=== PATIENT | female | born 1960 | race Caucasian/White ===

== ENCOUNTER 2023-09-24 10:32 | Inpatient (IN) ==
--- NOTE | 2023-09-24 10:54 | Emergency Department Note ---
Impression & Plan Confusion, Uses feeding tube, Dehydration, Abdominal fluid collection ED Provider Note NAME: DIOGO RITTER AGE: 63 SEX: F : 1960 ARRIVES VIA: Ambulance INFORMANT: Patient ED PROVIDER(S): Gama Morton MD CHIEF COMPLAINT: Confusion, abdominal pain PLAN: Disposition: Admit MEDICAL DECISION MAKING: The patient is a pleasant 63-year-old woman with a past medical history of gastrojejunal tube secondary to recurring bowel obstructions per her report which was placed years ago in [facility] at the [facility] who presents to emergency department via EMS for evaluation of confusion since last night into this morning with associated feverishness and abdominal pain. Patient reports that she had diarrhea last night and has had nausea and what she describes as "vomiting" where she reports she feels nauseated and has to vent her GJ tube. The patient reports she is visiting family in the area over the past several days from her home in [place]. Patient is prescribed Soma and gabapentin and reports she does not take more than is prescribed and in fact has not been taking her Soma recently. She denies any cough, congestion, chest pain or shortness of breath. On evaluation the patient is no acute distress, afebrile with stable vital signs. She appears clinically dry with dry cracked mucous membranes. She has no focal neurologic deficits and is moving all extremities equally. The patient has some fullness in the inferior lateral periphery of her GJ tube but otherwise no surrounding erythema or warmth. She has generalized abdominal discomfort without discrete tenderness. EKG without overt acute ischemia. CXR negative for acute cardiopulmonary process per my personal preliminary review/interpretation. WBC, H/H and platelets within normal limits. Chemistry without metabolic acidosis per electrolytes LFTs unremarkable. BUNs/creatinine is 23, consistent with patient's clinical dry appearance. Lactic acid 0.6, within normal limits. LFTs with AST, ALT and alk phos 94, 121 and 159, respectively, nonspecific without prior for comparison. High-sensitivity troponin 2.9, within normal limits. Lipase is within normal limits. Procalcitonin is not elevated. TSH is significantly low however free T4 within normal limits. UA without convincing evidence of infection. Urine drug screen was negative. Respiratory BioFire was negative. CT of the ab pelvis was performed and did not demonstrate evidence of bowel obstruction. Note is made of fluid collection in the subcutaneous tissues on the periphery of the patient's GJ tube for which sterility cannot be confirmed. I did review the patient's findings with her at the bedside and she reports that she has started to have new pain in the area surrounding her GJ tube which correlates to the fluid collection described on CT. Given her feverishness, abdominal pain and change in mental status she did agree with plan for admission for further management. Unclear if the patient's subcutaneous fluid collection is contributing to the patient's symptoms or may be chronic as no prior imaging is available for comparison. Empiric antibiotic treatment initiated with Zosyn and daptomycin at this time. Of note, the patient does have substantial stool burden within the rectum and may be contributing to decreased motility contribute to the patient's symptoms. Milk and molasses enema ordered to assist with disimpaction. Case was discussed with Michaelle DILLON with Dr. Lamas [facility] hospitalist, who will evaluate the patient for admission. Tickborne illness panel ordered and pending. Case was reviewed with Dr. Duarte, general surgery on-call on behalf of admitting team. No indication for immediate surgical evaluation or intervention and they will be available for inpatient team consultation. Admitting team was updated. Further management per admitting team. Triage Nursing notes reviewed and agree them. Prior/external medical records reviewed Vital Signs: reviewed Differential diagnosis: Gastroenteritis, food borne illness, infections, appendicitis, diverticulitis, inflammatory bowel disease, obstruction, GI bleed, biliary pathology, volvulus, as well as other pathologies. ER treatment provided: See below. Diagnostics interpreted by me: ECG: Normal sinus rhythm, 71 bpm, no ectopy, no overt ST elevation or depression, QTc 443, QRS 84. Cardiac Monitoring: An order for continuous cardiac monitoring was placed and demonstrated Normal sinus rhythm, 71 bpm, no ectopy. Laboratory studies: See below Imaging studies: See below Consultation(s): Michaelle DILLON with Dr. Lamas [facility] Hospitalist. Dr. Duarte, General surgery HPI: The patient is a pleasant 63-year-old woman with a past medical history of gastrojejunal tube secondary to recurring bowel obstructions per her report which was placed years ago in [facility] at the [facility] who presents to emergency department via EMS for evaluation of confusion since last night into this morning with associated feverishness and abdominal pain. Patient reports that she had diarrhea last night and has had nausea and what she describes as "vomiting" where she reports she feels nauseated and has to vent her GJ tube. The patient reports she is visiting family in the area over the past several days from her home in [place]. Patient is prescribed Soma and gabapentin and reports she does not take more than is prescribed and in fact has not been taking her Soma recently. She denies any cough, congestion, chest pain or shortness of breath. ROS: See above HPI for pertinent positives & negatives. A total of 10 systems reviewed and were otherwise negative. VITALS:See Below PHYSICAL EXAMINATION: GENERAL: Awake, alert, fatigued-appearing, in no distress, BMI 30.1. HENT: Normocephalic, atraumatic. Oropharynx with dry mucous membranes and otherwise unremarkable. EYES: Normal conjunctiva. Sclera non-icteric. EOMI. No nystamgus. PEARRL. NECK: Supple. No nuchal rigidity. FROM. No JVD. RESPIRATORY: Clear to auscultation. CARDIAC: Regular rate, normal rhythm. Extremities warm and well perfused. Pulses equal. ABDOMEN: Soft, non-distended. Some fullness in the inferior lateral periphery of her GJ tube but otherwise no surrounding erythema or warmth. No guarding or rebound. She has generalized abdominal discomfort without discrete tenderness. MUSCULOSKELETAL: Chest examination reveals no tenderness. The back is symmetrical on inspection without obvious abnormality. There is no CVA tenderness to palpation. No joint edema. LOWER EXTREMITIES: Calves are equal size bilaterally and non-tender. No edema. No discoloration. NEURO: Normal sensorium. No sensory or motor deficits noted. SKIN: No rash or jaundice noted. Gama Morton MD Past Med/Surg History Medical History Hypothyroidism History of Clostridioides difficile infection History of small bowel obstruction Uses feeding tube History of CVA (cerebrovascular accident) Diverticular disease of both small and large intestine Surgical History History of bowel resection History of total colectomy Social History Smoking Status: Former smoker Hx Alcohol Use: No Hx Substance Use: No Preferred Language: Portuguese Communication Ability: Effective Beliefs That Will Affect Care: None Current Living Situation: Spouse and Family Other Information That Helps Us Care for You: No Feels Safe at Home: Yes Assistive Devices: Glasses Allergies Allergies Allergy/AdvReac Type Severity Reaction Status Date / Time Sulfa (Sulfonamide Allergy Unknown Unknown Unverified 09/24/23 14:50 Antibiotics) ciprofloxacin [From Cipro] Allergy Anaphylaxis Verified 09/24/23 12:50 Home Meds Home Medications Medication Instructions Recorded Confirmed carisoprodol 350 mg tablet (Soma) 350 mg PO BID 09/24/23 09/24/23 cholecalciferol (vitamin D3) 10 0 mcg PO DAILY 09/24/23 09/24/23 mcg (400 unit) capsule (Vitamin D3) cyanocobalamin (vitamin B-12) 1,000 mcg IM UD 09/24/23 09/24/23 1,000 mcg/mL injection solution duloxetine 60 mg capsule,delayed 60 mg PO DAILY 09/24/23 09/24/23 release (Cymbalta) erenumab-aooe 140 mg/mL 140 mg subcut UD 09/24/23 09/24/23 subcutaneous auto-injector (Aimovig Autoinjector) ezetimibe 10 mg tablet (Zetia) 10 mg PO DAILY 09/24/23 09/24/23 famotidine 40 mg tablet 40 mg PO DAILY 09/24/23 09/24/23 folic acid 1 mg tablet 1 mg PO DAILY 09/24/23 09/24/23 gabapentin 600 mg tablet 600 mg PO BID 09/24/23 09/24/23 levothyroxine 100 mcg tablet 100 mcg PO DAILY 09/24/23 09/24/23 lidocaine 5 % topical patch 1 patch topical DAILY 09/24/23 09/24/23 meclizine 25 mg tablet 25 mg PO BID PRN Vertigo 09/24/23 09/24/23 methenamine hippurate 1 gram tablet 1 g PO BID 09/24/23 09/24/23 omega 1-dmq-ege-fish oil 1,000 mg 0 cap PO DAILY 09/24/23 09/24/23 (120 mg-180 mg) capsule (Fish Oil) promethazine 12.5 mg tablet 12.5 mg PO BID PRN nausea or 09/24/23 09/24/23 vomiting rosuvastatin 40 mg tablet 40 mg PO DAILY 09/24/23 09/24/23 spironolactone 50 mg tablet 50 mg PO DAILY 09/24/23 09/24/23 ubrogepant 50 mg tablet (Ubrelvy) 50 mg PO DAILY PRN Migraine 09/24/23 09/24/23 Headache zolpidem 10 mg tablet (Ambien) 10 mg PO HS 09/24/23 09/24/23 Results & Data (ED) Vital Signs Vital Signs - 24 hr 09/24/23 10:19 09/24/23 10:19 09/24/23 10:55 Temperature Temperature Source Pulse Rate 74 Pulse Rate [Apical] 68 Pulse Rhythm Pulse Rhythm [Apical] Regular Pulse Strength [Apical] Normal Respiratory Rate 18 Respiratory Effort / Characteristics Non-Labored Respiratory Depth Normal Respiratory Pattern Regular Blood Pressure Blood Pressure [Right Arm] 112/67 Blood Pressure Mean Blood Pressure Mean [Right Arm] 82 Blood Pressure Position Blood Pressure Position [Right Arm] Pulse Oximetry 94 97 Oxygen Delivery Method Room Air Room Air Sepsis Recent Fever Within 48 Hours Sepsis New/Unexplained Change in Mental Status Sepsis Action Taken by Nursing 09/24/23 11:02 09/24/23 11:08 09/24/23 11:15 Temperature 36.7 C 36.6 C Temperature Source Oral Oral Pulse Rate 72 72 Pulse Rate [Apical] 77 Pulse Rhythm Regular Pulse Rhythm [Apical] Regular Pulse Strength [Apical] Normal Respiratory Rate 19 18 18 Respiratory Effort / Characteristics Non-Labored Spontaneous Non-Labored Spontaneous Respiratory Depth Normal Normal Respiratory Pattern Regular Blood Pressure 112/67 Blood Pressure [Right Arm] 112/67 Blood Pressure Mean 82 Blood Pressure Mean [Right Arm] 82 Blood Pressure Position Lying Blood Pressure Position [Right Arm] Pulse Oximetry 94 100 99 Oxygen Delivery Method Room Air Room Air Room Air Sepsis Recent Fever Within 48 Hours No Sepsis New/Unexplained Change in Mental Status No Sepsis Action Taken by Nursing No Action Required 09/24/23 12:00 09/24/23 12:19 09/24/23 12:45 Temperature Temperature Source Pulse Rate Pulse Rate [Apical] 75 73 74 Pulse Rhythm Pulse Rhythm [Apical] Regular Regular Regular Pulse Strength [Apical] Normal Normal Normal Respiratory Rate 16 14 17 Respiratory Effort / Characteristics Non-Labored Spontaneous Non-Labored Spontaneous Non-Labored Spontaneous Respiratory Depth Normal Normal Normal Respiratory Pattern Regular Regular Regular Blood Pressure Blood Pressure [Right Arm] 112/67 122/57 L 117/64 Blood Pressure Mean Blood Pressure Mean [Right Arm] 82 78 81 Blood Pressure Position Blood Pressure Position [Right Arm] Lying Pulse Oximetry 98 97 96 Oxygen Delivery Method Room Air Room Air Room Air Sepsis Recent Fever Within 48 Hours Sepsis New/Unexplained Change in Mental Status Sepsis Action Taken by Nursing 09/24/23 13:00 09/24/23 13:15 09/24/23 14:00 Temperature Temperature Source Pulse Rate Pulse Rate [Apical] 70 71 72 Pulse Rhythm Pulse Rhythm [Apical] Regular Regular Regular Pulse Strength [Apical] Normal Normal Normal Respiratory Rate 16 16 18 Respiratory Effort / Characteristics Non-Labored Spontaneous Non-Labored Spontaneous Non-Labored Spontaneous Respiratory Depth Normal Normal Normal Respiratory Pattern Regular Regular Regular Blood Pressure Blood Pressure [Right Arm] 117/68 132/57 L 115/75 Blood Pressure Mean Blood Pressure Mean [Right Arm] 84 82 88 Blood Pressure Position Blood Pressure Position [Right Arm] Pulse Oximetry 96 96 100 Oxygen Delivery Method Room Air Room Air Room Air Sepsis Recent Fever Within 48 Hours Sepsis New/Unexplained Change in Mental Status Sepsis Action Taken by Nursing 09/24/23 15:16 Temperature Temperature Source Pulse Rate 60 Pulse Rate [Apical] Pulse Rhythm Pulse Rhythm [Apical] Pulse Strength [Apical] Respiratory Rate Respiratory Effort / Characteristics Respiratory Depth Respiratory Pattern Blood Pressure Blood Pressure [Right Arm] Blood Pressure Mean Blood Pressure Mean [Right Arm] Blood Pressure Position Blood Pressure Position [Right Arm] Pulse Oximetry Oxygen Delivery Method Sepsis Recent Fever Within 48 Hours Sepsis New/Unexplained Change in Mental Status Sepsis Action Taken by Nursing Laboratory Data Attestation: I reviewed the patient's lab results. 09/24/23 11:02 09/24/23 11:02 Lab Results 09/24/23 09/24/23 09/24/23 Range/Units 11:02 11:24 14:46 WBC 6.50 (4.8-10.8) K/ul RBC 4.21 (4.20-5.40) M/uL Hgb 13.1 (12.0-16.0) g/dl Hct 39.0 (37.0-47.0) % MCV 92.6 (80.0-100.0) fL MCH 31.1 (25.0-34.0) pg MCHC 33.6 (32.0-36.0) g/dL RDW Std Deviation 47.0 H (36.4-46.3) fL RDW Coeff of Presley 13.9 (11.5-14.5) % Plt Count 217 (130-400) K/uL MPV 9.6 (9.4-12.4) fL Immature Gran % (Auto) 0.6 % Neut % (Auto) 72.1 % Lymph % (Auto) 14.2 % Weld % (Auto) 9.8 % Eos % (Auto) 2.8 % Baso % (Auto) 0.5 % Neut # (Auto) 4.69 (1.40-6.50) K/uL Lymph # (Auto) 0.92 L (1.20-3.40) K/uL Weld # (Auto) 0.64 H (0.11-0.59) K/uL Eos # (Auto) 0.18 (0.00-0.50) K/uL Baso # (Auto) 0.03 (0.00-0.20) K/uL Immature Gran # (Auto) 0.04 (0.01-0.20) K/uL PT 10.4 (9.0-12.0) Seconds INR 0.9 (0.9-1.1) Sodium 139 (136-145) mmol/L Potassium 4.2 (3.5-5.1) mmol/L Chloride 106 (98-107) mmol/L Carbon Dioxide 27 (21-32) mmol/L Anion Gap 6 (3-11) BUN 17 (6-23) mg/dl Creatinine 0.74 (0.6-1.2) mg/dl Est Cr Clr Drug Dosing Not Reportable Est GFR ( Amer) 100.6 ml/min Est GFR (Non-Af Amer) 86.8 ml/min BUN/Creatinine Ratio 23.0 H (10-20) Glucose 89 (70-99(Fasting)) mg/dl Lactate 0.6 (0.4-2.0) mmol/L Calcium 9.3 (8.6-10.3) mg/dl Phosphorus 3.5 (2.5-4.9) mg/dl Magnesium 2.0 (1.7-2.4) mg/dl Total Bilirubin 0.3 (0.2-1.0) mg/dl Direct Bilirubin 0.1 (0-0.2) mg/dl AST 94 H (13-39) U/L ALT 121 H (7-52) U/L Alkaline Phosphatase 159 H (34-104) U/L Troponin I High Sens 2.9 (0-14) pg/ml Total Protein 6.1 (6.0-8.3) gm/dl Albumin 3.7 (3.4-5.0) gm/dl Lipase 27 (11-82) U/L Procalcitonin 0.05 (0-0.5) ng/ml TSH < 0.010 L (0.300-4.500) uIu/ml Free T4 1.33 (0.61-1.60) ng/dl Urine Color Yellow Urine Appearance Clear (Clear) Urine pH 6.0 (4.5-7.5) Ur Specific Roby 1.024 (1.000-1.030) Urine Protein Negative (Negative) Urine Glucose (UA) Negative (Negative) Urine Ketones Negative (Negative) Urine Blood Negative (Negative) Urine Nitrite Negative (Negative) Urine Bilirubin Negative (Negative) Urine Urobilinogen Negative (Negative) Ur Leukocyte Esterase Trace H (Negative) Urine WBC (Auto) 0-5 (0-5) /hpf Urine RBC (Auto) 3-5 H (0-2) /hpf U Hyaline Cast (Auto) 0-2 (0-2) /lpf U Epithel Cells (Auto) 0-2 (0-2) /hpf Urine Bacteria (Auto) None Seen (None Seen) Urine Opiates Screen Neg (Neg) Ur Methadone, Qual Neg (Neg) Urine Barbiturates Neg (Neg) Ur Phencyclidine (PCP) Neg (Neg) U Amphetamin/Meth Scrn Neg (Neg) MDMA (Ecstasy) Screen Neg (Neg) U Benzodiazepines Scrn Neg (Neg) Ur Cocaine Metabolite Neg (Neg) U Marijuana (THC) Screen Neg (Neg) Adenovirus (PCR) Not Detected (NotDetected) Anaplasma Smear See Comment Babesia Smear See Comment B. pertussis DNA (PCR) Not Detected (NotDetected) B.parapertussis DNA PCR Not Detected (NotDetected) Lyme Disease Screen Positive H (Negative) Lyme Disease IgG Ab Negative (Negative) Lyme Disease IgM Ab Negative (Negative) C. pneumoniae DNA (PCR) Not Detected (NotDetected) Coronavirus OC43 (PCR) Not Detected (NotDetected) Coronavirus HKU1 (PCR) Not Detected (NotDetected) Coronavirus 229E (PCR) Not Detected (NotDetected) SARS-CoV-2 (PCR) Not Detected (NotDetected) Coronavirus NL63 (PCR) Not Detected (NotDetected) Human Metapneumovir PCR Not Detected (NotDetected) Influenza Type A (PCR) Not Detected (NotDetected) Influenza Type B (PCR) Not Detected (NotDetected) M. pneumoniae (PCR) Not Detected (NotDetected) Parainfluenza 1 (PCR) Not Detected (NotDetected) Parainfluenza 2 (PCR) Not Detected (NotDetected) Parainfluenza 3 (PCR) Not Detected (NotDetected) Parainfluenza 4 (PCR) Not Detected (NotDetected) RSV (PCR) Not Detected (NotDetected) Entero/Rhino (PCR) Not Detected (NotDetected) Administered Medications Carisoprodol (Carisoprodol 350 Mg Tablet) 350 mg PO BID [facility] Stop: 10/24/23 20:59 Last Admin: 09/24/23 22:27 Dose: 350 mg Documented By: ALPESH Gabapentin (Gabapentin 600 Mg Tab) 600 mg PO BID [facility] Stop: 10/24/23 20:59 Last Admin: 09/24/23 21:34 Dose: 600 mg Documented By: ALPESH Heparin Sodium (Porcine) (Heparin Sod 5,000 Unit/0.5 Ml Vial) 5,000 units SQ Q8 [facility] Stop: 10/24/23 21:59 Last Admin: 09/24/23 21:34 Dose: 5,000 units Documented By: ALPESH Daptomycin 375 mg/ Syringe 7.5 mls @ 3.75 mls/min IV Q24H [facility]; Protocol Stop: 10/08/23 16:59 Last Admin: 09/24/23 17:45 Dose: 3.75 mls/min Documented By: JAYDEN Sodium Chloride (Nss) 1,000 mls @ 80 mls/hr IV .[id number] [facility] Stop: 10/24/23 20:41 Last Admin: 09/24/23 21:21 Dose: 80 mls/hr Documented By: ALPESH Piperacillin Sod/Tazobactam (Sod 4.5 gm/ Dextrose) 100 mls @ 25 mls/hr IV Q8H [facility]; Protocol Stop: 10/01/23 21:59 Last Admin: 09/24/23 21:36 Dose: 25 mls/hr Documented By: ALPESH Methenamine Hippurate (Methenamine Hippurate 1 Gm Tab) 1 gm PO BID [facility] Stop: 10/24/23 20:59 Last Admin: 09/24/23 21:34 Dose: 1 gm Documented By: ALPESH Oxycodone HCl (Oxycodone Hcl Ir 5 Mg Tab (Immediate Release)) 5 mg PO Q6H PRN PRN Reason: Mod-Sev Pain (Scale 4-10) Stop: 10/08/23 19:18 Last Admin: 09/24/23 21:21 Dose: 5 mg Documented By: ALPESH Sterile Water (Tube Feeding Water Flush) 60 ml GT Q6H [facility] Stop: 10/24/23 20:41 Last Admin: 09/24/23 21:22 Dose: 60 ml Documented By: ALPESH Discontinued Medications Sodium Chloride (Nss) 1,000 mls @ 999 mls/hr IV .Q1H1M ONE Stop: 09/24/23 11:51 Last Infusion: 09/24/23 12:14 Dose: Infused Documented By: Admin: 09/24/23 11:36 Dose: 999 mls/hr Documented By: FIDEL Famotidine (Pepcid 20mg Iv Push) 20 mg in 5 mls @ 2.5 mls/min IV NOW STA Stop: 09/24/23 10:53 Last Admin: 09/24/23 11:31 Dose: 2.5 mls/min Documented By: FIDEL Acetaminophen (Ofirmev) 1,000 mg in 100 mls @ 400 mls/hr IV NOW STA Stop: 09/24/23 11:06 Last Infusion: 09/24/23 12:14 Dose: Infused Documented By: Admin: 09/24/23 11:30 Dose: 400 mls/hr Documented By: FIDEL Piperacillin Sod/Tazobactam Sod (Zosyn) 4.5 gm in 100 mls @ 200 mls/hr IV NOW ONE Stop: 09/24/23 17:23 Last Infusion: 09/24/23 18:00 Dose: Infused Documented By: Admin: 09/24/23 17:21 Dose: 200 mls/hr Documented By: JAYDEN Daptomycin 250 mg/ Syringe 5 mls @ 2.5 mls/min IV Q24H [facility]; Protocol Stop: 10/01/23 20:41 Last Admin: 09/24/23 20:59 Dose: Not Given Documented By: ALPESH Ioversol (Optiray 320 100ml) 93 ml IV ONCE ONE Stop: 09/24/23 14:00 Last Admin: 09/24/23 13:59 Dose: 93 ml Documented By: PARRISH Ketorolac Tromethamine (Ketorolac Tromethamine 15 Mg/Ml Vial) 15 mg IV NOW STA Stop: 09/24/23 16:58 Last Admin: 09/24/23 17:08 Dose: 15 mg Documented By: JAYDEN Ondansetron HCl (Ondansetron Inj 2 Mg/Ml 2 Ml Vial) 4 mg IV NOW STA Stop: 09/24/23 10:53 Last Admin: 09/24/23 11:31 Dose: 4 mg Documented By: FIDEL Imaging Data Radiologist's Impression: Abdomen/Pelvis CT 09/24/23 12:[address] WITH IV CONTRAST CT DOSE: 2101.65 mGy.cm HISTORY: Acute transabdominal pain abd pain, Gtube, nausea, diarrhea TECHNIQUE: Multiaxial CT images of the abdomen and pelvis were performed following the IV administration of 93 cc of Optiray, A dose lowering technique was utilized adhering to the principles of ALARA. COMPARISON STUDY: None. FINDINGS: Right IJ catheter distal tip terminates in the right atrium. Mild bibasilar linear atelectasis versus scarring. No free air. Unremarkable spleen, pancreas and adrenal glands. Cholecystectomy with likely postsurgical biliary ductal dilation. Patency of the hepatic and portal veins. Cortical thinning of the kidneys without hydronephrosis. Punctate nonobstructing calculi in the inferior pole left kidney. There is a hyperdense 10 mm indeterminate lesion of the posterior interpolar right kidney image 195. Mild nonspecific urinary bladder wall thickening. Hysterectomy. Atherosclerosis of the aorta and branch vessels without aneurysm. No lymphadenopathy. A gastrostomy tube is noted coiled within the stomach with distal tip within the gastroduodenal junction. Mild gastric wall thickening with partial distention. There is mild inflammatory stranding within the abdominal wall adjacent to the gastrostomy tube. There is a 6 x 10 cm circumscribed crescentic fluid collection within the deep subcutaneous tissues along the anterior abdominal wall inferomedial to the gastrostomy tube. Postoperative changes of the large and small bowel with areas of anastomotic suture. No bowel obstruction or bowel wall thickening. No ascites or mesenteric inflammation. Diastases recti. No acute fracture or destructive bone lesion. Cannulated bulges noted within the SI joints. IMPRESSION: 1. No bowel obstruction or bowel wall thickening. 2. A gastrostomy tube is in place. There is wall thickening within the left anterior abdominal wall surrounding the gastrostomy tube with an adjacent indeterminate 6 cm anterior abdominal wall fluid collection. Stability cannot be determined by imaging alone. 3. Indeterminate 10 mm right renal lesion could be correlated with a nonemergent follow-up ultrasound. 4. Additional findings as above. ACT 112: Negative or not required by law. The above report was generated using voice recognition software. It may contain grammatical, syntax or spelling errors. Electronically signed by: Marcos Kerr M.D. 09/24/2023 2:[address] 09/24/23 12:[address] DOSE: HISTORY: Altered mental status. TECHNIQUE: Multiaxial CT images of the head were performed without the use of intravenous contrast. Automated exposure control was utilized for this study. A dose lowering technique was utilized adhering to the principles of ALARA. Comparison: None. Findings: The paranasal sinuses and mastoid air cells are clear. The calvarium and skull base are intact. The ventricles and sulci are within normal limits. There is no mass, hematoma, midline shift, or acute infarct. Impression: No acute intracranial abnormality. ACT 112: Negative or not required by law. Electronically signed by: Ketan Patel M.D. 09/24/2023 2:39 PM Discharge Plan Visit Data Chief Complaint: Confusion ED Provider: Gama Morton Discharge Problem: Confusion, Uses feeding tube, Dehydration, Abdominal fluid collection Patient Disposition: Admitted As Inpatient Discharge Instructions Interventions: ED Discharge Assessment Last Done: 09/24/23 20:24
[2023-09-24 11:22] LABS: Basophils # (auto) 0.03 K/uL (0.00-0.20); Basophils % (auto) 0.5 %; Eosinophils # (auto) 0.18 K/uL (0.00-0.50); Eosinophils % (auto) 2.8 %; Hemoglobin 13.1 g/dl (12.0-16.0); Immature Granulocytes # (auto) 0.04 K/uL (0.01-0.20); Immature Granulocytes % (auto) 0.6 %; Lymphocytes # (auto) 0.92 K/uL (1.20-3.40); Lymphocytes % (auto) 14.2 %; Mean Corpuscular Hemoglobin 31.1 pg (25.0-34.0); Mean Corpuscular Hgb Conc 33.6 g/dL (32.0-36.0); Mean Corpuscular Volume 92.6 fL (80.0-100.0); Mean Platelet Volume 9.6 fL (9.4-12.4); Monocytes # (auto) 0.64 K/uL (0.11-0.59); Monocytes % (auto) 9.8 %; Neutrophils # (auto) 4.69 K/uL (1.40-6.50); Neutrophils % (auto) 72.1 %; Platelet Count 217 K/uL (130-400); RDW Coefficient of Variation 13.9 % (11.5-14.5); Red Blood Count 4.21 M/uL (4.20-5.40)
--- NOTE | 2023-09-24 11:25 | XRay Report ---
XR chest 1V portable CLINICAL HISTORY: Sepsis TECHNIQUE: Single frontal radiograph of the chest was obtained. Comparison: None available at the time of this dictation. FINDINGS: A port catheter is seen. The cardiomediastinal silhouette is normal. Tenting of the left hemidiaphrag m is seen with associated left lower lung airspace opacity. Cannot exclude left pleural effusion. IMPRESSION: Tenting of the left hemidiaphragm likely represents a column component of atelectasis/scarring. Super imposed pneumonia cannot be excluded. ACT 112: Negative or not required by law. Electronically signed by: Nick Gomes M.D. 09/24/2023 11:24 AM
[2023-09-24] MEDS: ACETAMINOPHEN 1,000 MG/100 ML VIAL IV STA (11:30)
[2023-09-24] MEDS: FAMOTIDINE 20MG IV PUSH 20 MG/5 ML SYR IV STA (11:31)
[2023-09-24] MEDS: ONDANSETRON INJ 2 MG/ML 2 ML VIAL IV STA (11:31)
[2023-09-24] MEDS: SODIUM CHLORIDE 0.9% 1,000 ML IV ONE (11:36)
[2023-09-24 11:40] LABS: Alanine Aminotransferase 121 U/L (7-52); Albumin Level 3.7 gm/dl (3.4-5.0); Alkaline Phosphatase 159 U/L (34-104); Anion Gap 6 (3-11); Aspartate Aminotransferase 94 U/L (13-39); Bilirubin Direct 0.1 mg/dl (0-0.2); Bilirubin,Total 0.3 mg/dl (0.2-1.0); Blood Urea Nitrogen 17 mg/dl (6-23); Calcium 9.3 mg/dl (8.6-10.3); Carbon Dioxide 27 mmol/L (21-32); Chloride 106 mmol/L (98-107); Est GFR (African American) 100.6 ml/min; Est GFR (Non-African American) 86.8 ml/min; Glucose 89 mg/dl (70-99(Fasting)); Lipase 27 U/L (11-82); Phosphorus 3.5 mg/dl (2.5-4.9); Potassium 4.2 mmol/L (3.5-5.1); Sodium 139 mmol/L (136-145); Total Protein 6.1 gm/dl (6.0-8.3)
[2023-09-24 11:45] LABS: Troponin I High Sensitivity 2.9 pg/ml (0-14)
[2023-09-24 11:48] LABS: INR 0.9 (0.9-1.1); Prothrombin Time 10.4 Seconds (9.0-12.0)
[2023-09-24 11:54] LABS: Thyroid Stimulating Hormone < 0.010 uIu/ml (0.300-4.500)
[2023-09-24 12:25] LABS: Adenovirus PCR Not Detected (NotDetected); Bordetella parapertussis PCR Not Detected (NotDetected); Bordetella pertussis PCR Not Detected (NotDetected); Chlamydia pneumoniae PCR Not Detected (NotDetected); Coronavirus 229E PCR Not Detected (NotDetected); Coronavirus CoV-2 (COVID19)PCR Not Detected (NotDetected); Coronavirus HKU1 PCR Not Detected (NotDetected); Coronavirus NL63 PCR Not Detected (NotDetected); Coronavirus OC43PCR Not Detected (NotDetected); Human Metapneumovirus PCR Not Detected (NotDetected); Influenza A PCR Not Detected (NotDetected); Influenza B PCR Not Detected (NotDetected); Mycoplasma pneumoniae PCR Not Detected (NotDetected); Parainfluenza Virus 1 PCR Not Detected (NotDetected); Parainfluenza Virus 2 PCR Not Detected (NotDetected); Parainfluenza Virus 3 PCR Not Detected (NotDetected); Parainfluenza Virus 4 PCR Not Detected (NotDetected); Respiratory Syncytial VirusPCR Not Detected (NotDetected); Rhinovirus/Enterovirus PCR Not Detected (NotDetected)
[2023-09-24 12:28] LABS: T4 Free Thyroxine 1.33 ng/dl (0.61-1.60)
[2023-09-24] MEDS: OPTIRAY 320 100ml IV ONE (13:59)
--- NOTE | 2023-09-24 14:19 | CT Scan Report ---
ABDOMEN AND PELVIS CT WITH IV CONTRAST CT DOSE: 2101.65 mGy.cm HISTORY: Acute transabdominal pain abd pain, Gtube, nausea, diarrhea TECHNIQUE: Multiaxial CT images of the abdomen and pelvis were performed following the IV administrat ion of 93 cc of Optiray, A dose lowering technique was utilized adhering to the principles of ALARA. COMPARISON STUDY: None. FINDINGS: Right IJ catheter distal tip terminates in the right atrium. Mild bibasilar linear atelecta sis versus scarring. No free air. Unremarkable spleen, pancreas and adrenal glands. Cholecystectomy w ith likely postsurgical biliary ductal dilation. Patency of the hepatic and portal veins. Cortical thinning of the kidneys without hydronephrosis. Punctate nonobstructing calculi in the infer ior pole left kidney. There is a hyperdense 10 mm indeterminate lesion of the posterior interpolar ri ght kidney image 195. Mild nonspecific urinary bladder wall thickening. Hysterectomy. Atherosclerosis of the aorta and branch vessels without aneurysm. No lymphadenopathy. A gastrostomy tube is noted coiled within the stomach with distal tip within the gastroduodenal junct ion. Mild gastric wall thickening with partial distention. There is mild inflammatory stranding withi n the abdominal wall adjacent to the gastrostomy tube. There is a 6 x 10 cm circumscribed crescentic fluid collection within the deep subcutaneous tissues along the anterior abdominal wall inferomedial to the gastrostomy tube. Postoperative changes of the large and small bowel with areas of anastomotic suture. No bowel obstruction or bowel wall thickening. No ascites or mesenteric inflammation. Diasta ses recti. No acute fracture or destructive bone lesion. Cannulated bulges noted within the SI joints . IMPRESSION: 1. No bowel obstruction or bowel wall thickening. 2. A gastrostomy tube is in place. There is wall thickening within the left anterior abdominal wall s urrounding the gastrostomy tube with an adjacent indeterminate 6 cm anterior abdominal wall fluid col lection. Stability cannot be determined by imaging alone. 3. Indeterminate 10 mm right renal lesion could be correlated with a nonemergent follow-up ultrasound . 4. Additional findings as above. ACT 112: Negative or not required by law. The above report was generated using voice recognition software. It may contain grammatical, syntax o r spelling errors. Electronically signed by: Marcos Kerr M.D. 09/24/2023 2:17 PM
--- NOTE | 2023-09-24 14:40 | CT Scan Report ---
HEAD CT NONCONTRAST CT DOSE: HISTORY: Altered mental status. TECHNIQUE: Multiaxial CT images of the head were performed without the use of intravenous contrast. A utomated exposure control was utilized for this study. A dose lowering technique was utilized adheri ng to the principles of ALARA. Comparison: None. Findings: The paranasal sinuses and mastoid air cells are clear. The calvarium and skull base are int act. The ventricles and sulci are within normal limits. There is no mass, hematoma, midline shift, or acute infarct. Impression: No acute intracranial abnormality. ACT 112: Negative or not required by law. Electronically signed by: Ketan Patel M.D. 09/24/2023 2:39 PM
[2023-09-24 15:08] LABS: Appearance Urine Clear (Clear); Bacteria Urine Automated None Seen (None Seen); Bilirubin Urine Negative (Negative); Blood Urine Negative (Negative); Cast Urine Automated 0-2 /lpf (0-2); Color Urine Yellow; Epithelial Cell Urine Auto 0-2 /hpf (0-2); Glucose Urine UA Negative (Negative); Ketones Urine Negative (Negative); Leukocyte Esterase Urine Trace (Negative); Nitrite Urine Negative (Negative); Protein Urine Negative (Negative); Specific Gravity Urine 1.024 (1.000-1.030); Urobilinogen Urine Negative (Negative); WBC Urine Automated 0-5 /hpf (0-5)
[2023-09-24 15:27] LABS: Amphetamines+Metham, Urine Neg (Neg); Barbiturates, Urine Neg (Neg); Benzodiazepine, Urine Neg (Neg); Cocaine, Urine Neg (Neg); MDMA (Ecstacy), Urine Neg (Neg); Marijuana, Urine Neg (Neg); Methadone, Urine Neg (Neg); Opiate, Urine Neg (Neg); Phencyclidine, Urine Neg (Neg)
[2023-09-24] MEDS: KETOROLAC TROMETHAMINE 15 MG/ML VIAL IV STA (17:08)
[2023-09-24] MEDS: PIPERACILLIN/TAZOBACTAM 4.5 GM/100 ML BAG IV ONE (17:21)
[2023-09-24] MEDS: DAPTOmycin 375 MG in SYRINGE 0 ML IV SCH (17:45)
[2023-09-24 18:21] LABS: Lyme Screen Rflx Confirmation Positive (Negative)
--- NOTE | 2023-09-24 19:23 | History & Physical Report ---
Date of Service September 24, 2023 History of Present Illness Primary Care Provider: NO PCP Allergies Allergy/AdvReac Type Severity Reaction Status Date / Time Sulfa (Sulfonamide Allergy Unknown Unknown Unverified 09/24/23 14:50 Antibiotics) ciprofloxacin [From Cipro] Allergy Anaphylaxis Verified 09/24/23 12:50 Home Medications Medication Instructions Recorded Confirmed Type carisoprodol 350 mg tablet (Soma) 350 mg PO BID 09/24/23 09/24/23 History cholecalciferol (vitamin D3) 10 0 mcg PO DAILY 09/24/23 09/24/23 History mcg (400 unit) capsule (Vitamin D3) cyanocobalamin (vitamin B-12) 1,000 mcg IM UD 09/24/23 09/24/23 History 1,000 mcg/mL injection solution duloxetine 60 mg capsule,delayed 60 mg PO DAILY 09/24/23 09/24/23 History release (Cymbalta) erenumab-aooe 140 mg/mL 140 mg subcut UD 09/24/23 09/24/23 History subcutaneous auto-injector (Aimovig Autoinjector) ezetimibe 10 mg tablet (Zetia) 10 mg PO DAILY 09/24/23 09/24/23 History famotidine 40 mg tablet 40 mg PO DAILY 09/24/23 09/24/23 History folic acid 1 mg tablet 1 mg PO DAILY 09/24/23 09/24/23 History gabapentin 600 mg tablet 600 mg PO BID 09/24/23 09/24/23 History levothyroxine 100 mcg tablet 100 mcg PO DAILY 09/24/23 09/24/23 History lidocaine 5 % topical patch 1 patch topical DAILY 09/24/23 09/24/23 History meclizine 25 mg tablet 25 mg PO BID PRN Vertigo 09/24/23 09/24/23 History methenamine hippurate 1 gram tablet 1 g PO BID 09/24/23 09/24/23 History omega 8-gxc-vwf-fish oil 1,000 mg 0 cap PO DAILY 09/24/23 09/24/23 History (120 mg-180 mg) capsule (Fish Oil) promethazine 12.5 mg tablet 12.5 mg PO BID PRN nausea or 09/24/23 09/24/23 History vomiting rosuvastatin 40 mg tablet 40 mg PO DAILY 09/24/23 09/24/23 History spironolactone 50 mg tablet 50 mg PO DAILY 09/24/23 09/24/23 History ubrogepant 50 mg tablet (Ubrelvy) 50 mg PO DAILY PRN Migraine 09/24/23 09/24/23 History Headache zolpidem 10 mg tablet (Ambien) 10 mg PO HS 09/24/23 09/24/23 History Past Med/Surg History Social History Smoking Status: Never smoker Preferred Language: Austrian Feels Safe at Home: Yes Results & Data Results & Data Vital Signs (Past 12 Hours) Vital Signs Temp Pulse Pulse Resp BP BP Pulse Ox 09/24/23 19:16 68 09/24/23 15:16 60 09/24/23 14:00 72 18 115/75 100 09/24/23 13:15 71 16 132/57 L 96 09/24/23 13:00 70 16 117/68 96 09/24/23 12:45 74 17 117/64 96 09/24/23 12:19 73 14 122/57 L 97 09/24/23 12:00 75 16 112/67 98 09/24/23 11:15 36.6 C 77 18 112/67 99 09/24/23 11:08 72 18 100 09/24/23 11:02 36.7 C 72 19 112/67 94 09/24/23 10:55 74 09/24/23 10:19 97 09/24/23 10:19 68 18 112/67 94 O2 Del Method 09/24/23 19:16 09/24/23 15:16 09/24/23 14:00 Room Air 09/24/23 13:15 Room Air 09/24/23 13:00 Room Air 09/24/23 12:45 Room Air 09/24/23 12:19 Room Air 09/24/23 12:00 Room Air 09/24/23 11:15 Room Air 09/24/23 11:08 Room Air 09/24/23 11:02 Room Air 09/24/23 10:55 09/24/23 10:19 Room Air 09/24/23 10:19 Room Air Supervising Physician Co-Signing Physician Notes Patient was seen and examined independently at bedside. Chart reviewed. Case discussed with Michaelle DILLON and agree with the documentation above. In summary, this is a 63 year old female with complicated history with multiple abdominal surgeries who presented to the ED with multiple constitutional symptoms. She is from [place] and drove here on Saturday with a stop overnight at [employer]. They arrived here on Saturday but she has been feeling sick since then. States she was exhausted with no energy. Had chills, sweating, decreased alertness and drained. She also has pain in her LLQ around the PEG tube site. States for the past week, she had yellow drainage with black stuff for few days and now mostly yellow. She has felt better since the ED treatment with iv fluids and antibiotics. During my encounter, she is AAO and conversing appropriately. She complains of pain around PEG tube site and asking for some pain meds. Discussed the labs and imaging findings. She is afebrile, hemodynamically stable. Labs including CBC, BMP unremarkable, UA negative but AST/ALT elevated, TSH <0.01, fT4 normal, lyme screen positive, RVP negative, UDS negative. CT head negative but CT A/P with noted 6x10 collection around PEG tube. Also states they went camping in [place] for 10 days in beginning of August but denies any tick bites. Will continue empiric antibiotics pending clx results, surgery evaluation. Decrease Synthroid to 75 given suspected subclinical hyperthyroidism and recommend OP follow up with repeat TFT in 6wks. On exam- General: Lying comfortably in bed, not in distress, on room air HEENT: EOMI, BRIAN, MMM Chest: Clear breath sounds bilaterally, no wheezes or crackles. Left sided port-A-cath noted- site clean. CVS: Regular rate and rhythm, normal heart sounds, no murmur Abdomen: Soft, PEG tube noted, mildly tender, not distended, normal bowel sounds Neuro: Awake, alert, oriented, conversing well, non focal Extremities: mild chronic edema Rest as per the note above.
--- NOTE | 2023-09-24 20:20 | History & Physical Report ---
Date of Service September 24, 2023 Assessment & Plan (1) Confusion: (2) Dehydration: (3) Abdominal fluid collection: (4) History of total colectomy: (5) Uses feeding tube: Plan: Admit to [facility] with telemetry Patient presenting for evaluation of confusion and generalized weakness. Patient with history of extensive diverticular disease and recurrent SBO's s/p multiple bowel resections ultimately leading to total colectomy. Had GJ tube placed February 2023. In the ED, afebrile, no leukocytosis. CT ABD/pelvis shows wall thickening within the left anterior abdominal wall surrounding the gastrostomy tube with an adjacent indeterminate 6 cm anterior abdominal wall fluid collection. Obtain culture of drainage S/p Zosyn and daptomycin in the ED, will continue with both for now pending culture results Follow blood cultures General surgery contacted by ED Consider IR evaluation tomorrow for possible fluid collection drainage. Patient did not receive her usual free water flushes yesterday. Suspect that dehydration was likely contributing to her confusion and generalized weakness. Patient seemed to have significant improvement after IVF administration in the ED. Continue maintenance IVF. Home tube feeding regimen-Peptamen 1.5 3 cartons to run over 7 hours and Prosource 30 mL bolus 4 times a day with 60 mL water flushes and 30 mL flush after Prosource. Dietitian consult for tube feed management. (6) Elevated LFTs: Plan: Patient reports a history of elevated LFTs, no records available to review at this time T. bili 0.3, AST 94, ALT 121, alk phos 159 Lyme screen positive however IgG and IgM negative. Anaplasma and Babesia smears negative for inclusion bodies, confirmatory testing pending. CT ABD/pelvis shows Cholecystectomy with likely postsurgical biliary ductal dilation. Will obtain RUQ US for follow-up. Trend LFTs, consider GI consult if not improving (7) Renal lesion: Plan: CT ABD/pelvis shows Indeterminate 10 mm right renal lesion could be correlated with a nonemergent follow-up ultrasound Renal ultrasound ordered (8) Hypothyroidism: Plan: TSH <0.010 with normal free T4 Continue home dose Synthroid, will need close outpatient follow-up DVT PROPHYLAXIS SQ heparin Patient seen in collaboration with Dr. Lamas. I spent a total of 75 minutes coordinating, documenting, and providing care for this patient excluding time spent in the performance of separately billed services. This included personally reviewing all current laboratories and imaging studies, medication reconciliation, outpatient chart review, and discussion with specialists. History of Present Illness Chief Complaint: Confusion, weakness Primary Care Provider: NO PCP 63-year-old female with PMH history of CVA, extensive history of diverticular disease s/p multiple bowel resections ultimately leading to total colectomy, GJ tube placement February 2023, history of recurrent small bowel obstructions, history of C. difficile infection, and other problems listed below who presents to the ED for evaluation of confusion and generalized weakness. History is obtained from the patient and who is the bedside. No outside records available for review. Patient and her are visiting family in the area. They primarily reside in [place]. Last evening, patient's states that patient was confused and hallucinating. Symptoms lasted for about 10 minutes and then resolved. Patient then went to bed. This morning, when patient woke up she was again confused and was generally weak, unable to sit up or get out of bed. Patient was then brought to the ED for further evaluation. Patient reports having some episodes of chills however did not take her temperature. Yesterday, patient was unable to get her usual amount of free water flushes through her feeding tube. Patient reports increased pain around her GJ tube insertion site as well with increased drainage. She has chronic diarrhea which is unchanged from baseline. No vomiting. She denies chest pain and shortness of breath. No lightheadedness, dizziness, diaphoresis, syncopal events. Denies urinary symptoms. In the ED, patient is afebrile, no leukocytosis noted. Mildly elevated LFTs, AST 94, ALT 121, alk phos 159. Lyme screen positive however IgG and IgM negative. CT ABD/pelvis shows There is wall thickening within the left anterior abdominal wall surrounding the gastrostomy tube with an adjacent indeterminate 6 cm anterior abdominal wall fluid collection. Patient was given IV Tylenol, IV daptomycin, IV famotidine, IV ketorolac, IV Zofran, IV Zosyn, IVF. Allergies Allergy/AdvReac Type Severity Reaction Status Date / Time Sulfa (Sulfonamide Allergy Unknown Unknown Unverified 09/24/23 14:50 Antibiotics) ciprofloxacin [From Cipro] Allergy Anaphylaxis Verified 09/24/23 12:50 Home Medications Medication Instructions Recorded Confirmed Type carisoprodol 350 mg tablet (Soma) 350 mg PO BID 09/24/23 09/24/23 History cholecalciferol (vitamin D3) 10 0 mcg PO DAILY 09/24/23 09/24/23 History mcg (400 unit) capsule (Vitamin D3) cyanocobalamin (vitamin B-12) 1,000 mcg IM UD 09/24/23 09/24/23 History 1,000 mcg/mL injection solution duloxetine 60 mg capsule,delayed 60 mg PO DAILY 09/24/23 09/24/23 History release (Cymbalta) erenumab-aooe 140 mg/mL 140 mg subcut UD 09/24/23 09/24/23 History subcutaneous auto-injector (Aimovig Autoinjector) ezetimibe 10 mg tablet (Zetia) 10 mg PO DAILY 09/24/23 09/24/23 History famotidine 40 mg tablet 40 mg PO DAILY 09/24/23 09/24/23 History folic acid 1 mg tablet 1 mg PO DAILY 09/24/23 09/24/23 History gabapentin 600 mg tablet 600 mg PO BID 09/24/23 09/24/23 History levothyroxine 100 mcg tablet 100 mcg PO DAILY 09/24/23 09/24/23 History lidocaine 5 % topical patch 1 patch topical DAILY 09/24/23 09/24/23 History meclizine 25 mg tablet 25 mg PO BID PRN Vertigo 09/24/23 09/24/23 History methenamine hippurate 1 gram tablet 1 g PO BID 09/24/23 09/24/23 History omega 0-vhz-nda-fish oil 1,000 mg 0 cap PO DAILY 09/24/23 09/24/23 History (120 mg-180 mg) capsule (Fish Oil) promethazine 12.5 mg tablet 12.5 mg PO BID PRN nausea or 09/24/23 09/24/23 History vomiting rosuvastatin 40 mg tablet 40 mg PO DAILY 09/24/23 09/24/23 History spironolactone 50 mg tablet 50 mg PO DAILY 09/24/23 09/24/23 History ubrogepant 50 mg tablet (Ubrelvy) 50 mg PO DAILY PRN Migraine 09/24/23 09/24/23 History Headache zolpidem 10 mg tablet (Ambien) 10 mg PO HS 09/24/23 09/24/23 History Past Med/Surg History Medical History Hypothyroidism History of Clostridioides difficile infection History of small bowel obstruction Uses feeding tube History of CVA (cerebrovascular accident) Diverticular disease of both small and large intestine Surgical History History of bowel resection History of total colectomy Social History Smoking Status: Former smoker Hx Alcohol Use: No Hx Substance Use: No Preferred Language: Wallisian Communication Ability: Effective Beliefs That Will Affect Care: None Current Living Situation: Spouse and Family Other Information That Helps Us Care for You: No Feels Safe at Home: Yes Assistive Devices: Glasses Physical Exam Constitutional: WD/WN, vitals as above no acute distress Eyes: PERRL, conjunctivae normal, anicteric sclerae ENMT: Ears: no external ear abnormality Nose: no external nose abnormality Mouth: + dry oral mucous membranes Respiratory: normal respiratory effort, lungs clear to auscultation Cardiovascular: Rate/Rhythm: regular rate and regular rhythm Vessels: normal peripheral pulses Extremities: no edema Gastrointestinal (Abdomen): Inspection/Auscultation: normal bowel sounds Percussion/Palpation: + abdomen tender (Mildly tender around feeding tube insertion site) and abdomen soft Musculoskeletal: no cyanosis or clubbing, extremities motor strength 5/5 Skin: no rashes, warm and dry Neurologic: PERRL, EOMI, accommodation nl, no face palsy, no dysarthria Psychiatric: A+Ox3, euthymic affect Results & Data Results & Data Vital Signs (Past 12 Hours) Vital Signs Temp Pulse Pulse Resp BP BP Pulse Ox 09/24/23 19:16 68 09/24/23 15:16 60 09/24/23 14:00 72 18 115/75 100 09/24/23 13:15 71 16 132/57 L 96 09/24/23 13:00 70 16 117/68 96 09/24/23 12:45 74 17 117/64 96 09/24/23 12:19 73 14 122/57 L 97 09/24/23 12:00 75 16 112/67 98 09/24/23 11:15 36.6 C 77 18 112/67 99 09/24/23 11:08 72 18 100 09/24/23 11:02 36.7 C 72 19 112/ 94 09/24/23 10:55 74 09/24/23 10:19 97 09/24/23 10:19 68 18 94 O2 Del Method 09/24/23 19:16 09/24/23 15:16 09/24/23 14:00 Room Air 09/24/23 13:15 Room Air 09/24/23 13:00 Room Air 09/24/23 12:45 Room Air 09/24/23 12:19 Room Air 09/24/23 12:00 Room Air 09/24/23 11:15 Room Air 09/24/23 11:08 Room Air 09/24/23 11:02 Room Air 09/24/23 10:55 09/24/23 10:19 Room Air 09/24/23 10:19 Room Air Laboratory Results Short CBC 09/24/23 Range/Units 11:02 WBC 6.50 (4.8-10.8) K/ul Hgb 13.1 (12.0-16.0) g/dl Hct 39.0 (37.0-47.0) % Plt Count 217 (130-400) K/uL BMP 09/24/23 11:02 Sodium 139 Potassium 4.2 Chloride 106 Carbon Dioxide 27 BUN 17 Creatinine 0.74 Glucose 89 Calcium 9.3 Liver Function 09/24/23 Range/Units 11:02 Total Bilirubin 0.3 (0.2-1.0) mg/dl Direct Bilirubin 0.1 (0-0.2) mg/dl AST 94 H (13-39) U/L ALT 121 H (7-52) U/L Alkaline Phosphatase 159 H (34-104) U/L Albumin 3.7 (3.4-5.0) gm/dl Urine 09/24/23 Range/Units 14:46 Urine Color Yellow Urine Appearance Clear (Clear) Urine pH 6.0 (4.5-7.5) Ur Specific [place] 1.024 (1.000-1.030) Urine Protein Negative (Negative) Urine Glucose (UA) Negative (Negative) Diagnostic Findings Chest X-Ray 09/24/23 10:45 XR chest 1V portable CLINICAL HISTORY: Sepsis TECHNIQUE: Single frontal radiograph of the chest was obtained. Comparison: None available at the time of this dictation. FINDINGS: A port catheter is seen. The cardiomediastinal silhouette is normal. Tenting of the left hemidiaphragm is seen with associated left lower lung airspace opacity. Cannot exclude left pleural effusion. IMPRESSION: Tenting of the left hemidiaphragm likely represents a column component of atelectasis/scarring. Superimposed pneumonia cannot be excluded. ACT 112: Negative or not required by law. Electronically signed by: Nick Gomes M.D. 09/24/2023 11:24 AM Abdomen/Pelvis CT 09/24/23 12:[address] WITH IV CONTRAST CT DOSE: 2101.65 mGy.cm HISTORY: Acute transabdominal pain abd pain, Gtube, nausea, diarrhea TECHNIQUE: Multiaxial CT images of the abdomen and pelvis were performed following the IV administration of 93 cc of Optiray, A dose lowering technique was utilized adhering to the principles of ALARA. COMPARISON STUDY: None. FINDINGS: Right IJ catheter distal tip terminates in the right atrium. Mild bibasilar linear atelectasis versus scarring. No free air. Unremarkable spleen, pancreas and adrenal glands. Cholecystectomy with likely postsurgical biliary ductal dilation. Patency of the hepatic and portal veins. Cortical thinning of the kidneys without hydronephrosis. Punctate nonobstructing calculi in the inferior pole left kidney. There is a hyperdense 10 mm indeterminate lesion of the posterior interpolar right kidney image 195. Mild nonspecific urinary bladder wall thickening. Hysterectomy. Atherosclerosis of the aorta and branch vessels without aneurysm. No lymphadenopathy. A gastrostomy tube is noted coiled within the stomach with distal tip within the gastroduodenal junction. Mild gastric wall thickening with partial distention. There is mild inflammatory stranding within the abdominal wall adjacent to the gastrostomy tube. There is a 6 x 10 cm circumscribed crescentic fluid collection within the deep subcutaneous tissues along the anterior abdominal wall inferomedial to the gastrostomy tube. Postoperative changes of the large and small bowel with areas of anastomotic suture. No bowel obstruction or bowel wall thickening. No ascites or mesenteric inflammation. Diastases recti. No acute fracture or destructive bone lesion. Cannulated bulges noted within the SI joints. IMPRESSION: 1. No bowel obstruction or bowel wall thickening. 2. A gastrostomy tube is in place. There is wall thickening within the left anterior abdominal wall surrounding the gastrostomy tube with an adjacent indeterminate 6 cm anterior abdominal wall fluid collection. Stability cannot be determined by imaging alone. 3. Indeterminate 10 mm right renal lesion could be correlated with a nonemergent follow-up ultrasound. 4. Additional findings as above. ACT 112: Negative or not required by law. The above report was generated using voice recognition software. It may contain grammatical, syntax or spelling errors. Electronically signed by: Marcos Kerr M.D. 09/24/2023 2:[address] 09/24/23 12:[address] DOSE: HISTORY: Altered mental status. TECHNIQUE: Multiaxial CT images of the head were performed without the use of intravenous contrast. Automated exposure control was utilized for this study. A dose lowering technique was utilized adhering to the principles of ALARA. Comparison: None. Findings: The paranasal sinuses and mastoid air cells are clear. The calvarium and skull base are intact. The ventricles and sulci are within normal limits. There is no mass, hematoma, midline shift, or acute infarct. Impression: No acute intracranial abnormality. ACT 112: Negative or not required by law. Electronically signed by: Ketan Patel M.D. 09/24/2023 2:39 PM Supervising Physician Co-Signing Physician Notes Patient was seen and examined independently at bedside. Chart reviewed. Case discussed with Michaelle DILLON and agree with the documentation above. In summary, this is a 63 year old female with complicated history with multiple abdominal surgeries who presented to the ED with multiple constitutional symptoms. She is from [place] and drove here on Saturday with a stop overnight at [facility]. They arrived here on Saturday but she has been feeling sick since then. States she was exhausted with no energy. Had chills, sweating, decreased alertness and drained. She also has pain in her LLQ around the PEG tube site. States for the past week, she had yellow drainage with black stuff for few days and now mostly yellow. She has felt better since the ED treatment with iv fluids and antibiotics. During my encounter, she is AAO and conversing appropriately. She complains of pain around PEG tube site and asking for some pain meds. Discussed the labs and imaging findings. She is afebrile, hemodynamically stable. Labs including CBC, BMP unremarkable, UA negative but AST/ALT elevated, TSH <0.01, fT4 normal, lyme screen positive but IgG and IgM negative, RVP negative, UDS negative. CT head negative but CT A/P with noted 6x10 collection around PEG tube. Also states they went camping in [place] for 10 days in beginning of August but denies any tick bites. Will continue empiric antibiotics pending clx results, surgery evaluation. Decrease Synthroid to 75 given suspected subclinical hyperthyroidism and recommend OP follow up with repeat TFT in 6wks. On exam- General: Lying comfortably in bed, not in distress, on room air HEENT: EOMI, BRIAN, MMM Chest: Clear breath sounds bilaterally, no wheezes or crackles. Left sided port-A-cath noted- site clean. CVS: Regular rate and rhythm, normal heart sounds, no murmur Abdomen: Soft, PEG tube noted, mildly tender, not distended, normal bowel sounds Neuro: Awake, alert, oriented, conversing well, non focal Extremities: mild chronic edema Rest as per the note above.
[2023-09-24] MEDS: DAPTOmycin 250 MG in SYRINGE 0 ML IV SCH (20:59)
[2023-09-24] MEDS: SODIUM CHLORIDE 0.9% 1,000 ML IV SCH (21:21)
[2023-09-24] MEDS: oxyCODONE HCL IR 5 MG TAB (IMMEDIATE RELEASE) PO PRN (21:21)
[2023-09-24] MEDS: TUBE FEEDING WATER FLUSH GT SCH (21:22)
[2023-09-24] MEDS: GABAPENTIN 600 MG TAB PO SCH (21:34)
[2023-09-24] MEDS: HEPARIN SOD 5,000 UNIT/0.5 ML VIAL SQ SCH (21:34)
[2023-09-24] MEDS: METHENAMINE HIPPURATE 1 GM TAB PO SCH (21:34)
[2023-09-24] MEDS: PIPERACILLIN/TAZOBACTAM 4.5 GM in DEXTROSE 5% MINI-B 100 ML IV SCH (21:36)
[2023-09-24] MEDS: CARISOPRODOL 350 MG TABLET PO SCH (22:27)
[2023-09-25] MEDS: ACETAMINOPHEN 325 MG TAB PO PRN (00:59)
[2023-09-25] MEDS: MELATONIN 3 MG TAB PO PRN (01:37)
[2023-09-25] MEDS: MELATONIN 3 MG TAB PO ONE (01:39)
[2023-09-25] MEDS: ONDANSETRON INJ 2 MG/ML 2 ML VIAL IV PRN (03:50)
[2023-09-25 04:55] LABS: Hematocrit (blood only) 34.7 % (37.0-47.0); Hemoglobin 11.1 g/dl (12.0-16.0); Mean Corpuscular Hemoglobin 30.8 pg (25.0-34.0); Mean Corpuscular Volume 96.4 fL (80.0-100.0); Mean Platelet Volume 9.8 fL (9.4-12.4); Platelet Count 183 K/uL (130-400); RDW Coefficient of Variation 13.7 % (11.5-14.5); RDW Standard Deviation 48.9 fL (36.4-46.3); White Blood Count 3.81 K/ul (4.8-10.8)
[2023-09-25] MEDS: LEVOTHYROXINE SODIUM 75 MCG TABLET PO SCH (05:01)
[2023-09-25 05:06] LABS: Albumin Globulin Ratio 1.6 (0.9-2); Albumin Level 3.1 gm/dl (3.4-5.0); Bilirubin,Total 0.4 mg/dl (0.2-1.0); Calcium 8.4 mg/dl (8.6-10.3); Creatinine Clr Calc Pharmacy 81.6 ml/min; Est GFR (African American) 90.2 ml/min; Est GFR (Non-African American) 77.8 ml/min; Potassium 3.7 mmol/L (3.5-5.1); Total Protein 5.1 gm/dl (6.0-8.3)
[2023-09-25] MEDS: DOCUSATE SODIUM 100 MG CAP PO ONE (06:41)
[2023-09-25] MEDS: DOCUSATE SODIUM/SENNA 50/8.6MG TAB PO SCH (06:42)
[2023-09-25] MEDS: FAMOTIDINE 40 MG TABLET PO SCH (07:39)
[2023-09-25] MEDS: DULoxetine HCL 60 MG CAP PO SCH (07:39)
[2023-09-25] MEDS: EZETIMIBE 10 MG TAB PO SCH (07:39)
[2023-09-25] MEDS: FOLIC ACID 1 MG TAB PO SCH (07:39)
[2023-09-25] MEDS: CHOLECALCIFEROL 25 MCG (1000 UNITS) TAB PO SCH (07:39)
[2023-09-25] MEDS: ASCORBIC ACID 500 MG TAB PO SCH ×2 (08:39→21:27)
[2023-09-25] MEDS: KETOROLAC TROMETHAMINE 15 MG/ML VIAL IV ONE (08:39)
--- NOTE | 2023-09-25 09:10 | Surgery Consultation ---
Date of Consultation September 25, 2023 Assessment & Plan (1) Abdominal fluid collection: (2) Dehydration: (3) Confusion: Plan 63 year-old female with history of multiple abdominal surgeries with gastrojejunostomy tube with fluid collection of the anterior abdominal wall with no leukocytosis and afebrile. No signs of infection on examination of the abdomen surrounding g-j tube. There is some stranding seen on CT scan, no trauma to abdomen and no issues with function of the g-j tube. Fluid collection might be chronic seroma from prior surgeries, doubt abscess given no leukocytosis, afebrile and no induration or findings on exam to suggest infection. Could consider IR/image guided drainage of fluid collection. No surgical intervention required at this time. Our services signing off, please call with questions/concerns. Dr. Duarte has seen and examined patient, agrees with above. Supervising Physician Co-Signing Physician Notes I have seen and examined the patient personally and agree with the above assessment and plan. In brief she is 63-year-old woman with a history of multiple abdominal surgeries with a gastrojejunostomy tube placed last year in [place]. She was admitted with generalized weakness and confusion. CT scan demonstrated small fluid collection of the anterior abdominal wall in the midline adjacent to the gastrojejunostomy tube. No signs of infection on exam. There is no surgical intervention required. Recommend discussion with interventional radiology for potential aspiration of the fluid collection. Please call with any questions or concerns. History of Present Illness Reason for Consultation: fluid collection around gastro-jejunostomy tube Requesting Physician: Michaelle Pierce PA-C Attending Physician: Kaitlynn Elias MD History of Present Illness Mrs. Mosher is a 63 year-old female from [place] here visiting family with history of multiple abdominal surgeries with subtotal colectomy and placement of gastrojejunostomy tube presented to ED with complaint of not feeling well with pain around g-tube site and confusion per . ER work-up showed no leukocytosis, afebrile, ct scan with some straning around g-tube and fluid collection anterior abdominal wall inferiomedially to the g-tube site. Our services consulted for fluid collection. She states she does have pain at site of g-tube internally with coughing, moving, or sneezing. g-tube has been flushing fine without any issues. did have some yellow/black drainage surrounding the tube initially. Has tube exchanged every 3 months but otherwise no prior history of issues with the tube since it was placed. Allergies Allergy/AdvReac Type Severity Reaction Status Date / Time Sulfa (Sulfonamide Allergy Unknown Unknown Unverified 09/24/23 14:50 Antibiotics) ciprofloxacin [From Cipro] Allergy Anaphylaxis Verified 09/24/23 12:50 Home Medications Medication Instructions Recorded Confirmed Type carisoprodol 350 mg tablet (Soma) 350 mg PO BID 09/24/23 09/24/23 History cholecalciferol (vitamin D3) 10 0 mcg PO DAILY 09/24/23 09/24/23 History mcg (400 unit) capsule (Vitamin D3) cyanocobalamin (vitamin B-12) 1,000 mcg IM UD 09/24/23 09/24/23 History 1,000 mcg/mL injection solution duloxetine 60 mg capsule,delayed 60 mg PO DAILY 09/24/23 09/24/23 History release (Cymbalta) erenumab-aooe 140 mg/mL 140 mg subcut UD 09/24/23 09/24/23 History subcutaneous auto-injector (Aimovig Autoinjector) ezetimibe 10 mg tablet (Zetia) 10 mg PO DAILY 09/24/23 09/24/23 History famotidine 40 mg tablet 40 mg PO DAILY 09/24/23 09/24/23 History folic acid 1 mg tablet 1 mg PO DAILY 09/24/23 09/24/23 History gabapentin 600 mg tablet 600 mg PO BID 09/24/23 09/24/23 History levothyroxine 100 mcg tablet 100 mcg PO DAILY 09/24/23 09/24/23 History lidocaine 5 % topical patch 1 patch topical DAILY 09/24/23 09/24/23 History meclizine 25 mg tablet 25 mg PO BID PRN Vertigo 09/24/23 09/24/23 History methenamine hippurate 1 gram tablet 1 g PO BID 09/24/23 09/24/23 History omega 1-pnm-mkn-fish oil 1,000 mg 0 cap PO DAILY 09/24/23 09/24/23 History (120 mg-180 mg) capsule (Fish Oil) promethazine 12.5 mg tablet 12.5 mg PO BID PRN nausea or 09/24/23 09/24/23 History vomiting rosuvastatin 40 mg tablet 40 mg PO DAILY 09/24/23 09/24/23 History spironolactone 50 mg tablet 50 mg PO DAILY 09/24/23 09/24/23 History ubrogepant 50 mg tablet (Ubrelvy) 50 mg PO DAILY PRN Migraine 09/24/23 09/24/23 History Headache zolpidem 10 mg tablet (Ambien) 10 mg PO HS 09/24/23 09/24/23 History Patient History Medical History Hypothyroidism History of Clostridioides difficile infection History of small bowel obstruction Uses feeding tube History of CVA (cerebrovascular accident) Diverticular disease of both small and large intestine Surgical History History of bowel resection History of total colectomy Social History Smoking Status: Former smoker Hx Alcohol Use: No Hx Substance Use: No Preferred Language: Croatian Communication Ability: Effective Beliefs That Will Affect Care: None Current Living Situation: Spouse and Family Other Information That Helps Us Care for You: No Feels Safe at Home: Yes Assistive Devices: Glasses Review of Systems Review of Systems: All systems reviewed & are unremarkable except as noted in HPI & below Physical Exam Constitutional: + obese, cooperative and comfortable; no acute distress and not ill appearing Respiratory: normal respiratory effort; no respiratory distress Gastrointestinal (Abdomen): Inspection/Auscultation: abdomen normal to in spection and + abdominal surgical scar (midline laparotomy scar); abdomen not distended Percussion/Palpation: + abdomen tender and abdomen soft; no guarding and abdomen not rigid Gastrostomy tube of LUQ without any surrounding erythema, induration or fluctuance. No erythema or induration of the midline incision at site of fluid colleciton on CT scan. She is tender to palpation fo the LUQ at site of gastrostomy tube but no peritonitis, rigidity and abdomen is soft. Skin: no rashes, warm and dry Psychiatric: Orientation: alert and oriented x 3 Results & Data Vital Signs (Past 12 Hours) Vital Signs Temp Pulse Pulse Resp BP Pulse Ox O2 Del Method 09/25/23 07:50 36.8 C 65 16 113/70 94 Room Air 09/25/23 07:22 65 09/25/23 03:06 36.8 C 69 18 97/53 L 93 Room Air 09/25/23 02:11 66 Laboratory Results 09/25/23 09/24/23 09/24/23 Range/Units 03:42 14:46 11:24 WBC 3.81 L (4.8-10.8) K/ul RBC 3.60 L (4.20-5.40) M/uL Hgb 11.1 L (12.0-16.0) g/dl Hct 34.7 L (37.0-47.0) % MCV 96.4 (80.0-100.0) fL MCH 30.8 (25.0-34.0) pg MCHC 32.0 (32.0-36.0) g/dL RDW Std Deviation 48.9 H (36.4-46.3) fL RDW Coeff of Presley 13.7 (11.5-14.5) % Plt Count 183 (130-400) K/uL MPV 9.8 (9.4-12.4) fL PT (9.0-12.0) Seconds INR (0.9-1.1) Sodium 140 (136-145) mmol/L Potassium 3.7 (3.5-5.1) mmol/L Chloride 109 H (98-107) mmol/L Carbon Dioxide 26 (21-32) mmol/L Anion Gap 5 (3-11) BUN 13 (6-23) mg/dl Creatinine 0.81 (0.6-1.2) mg/dl Est Cr Clr Drug Dosing 81.6 Est GFR ( Amer) 90.2 ml/min Est GFR (Non-Af Amer) 77.8 ml/min BUN/Creatinine Ratio 16.0 (10-20) Glucose 83 (70-99(Fasting)) mg/dl Calcium 8.4 L (8.6-10.3) mg/dl Phosphorus (2.5-4.9) mg/dl Magnesium (1.7-2.4) mg/dl Total Bilirubin 0.4 (0.2-1.0) mg/dl Direct Bilirubin (0-0.2) mg/dl AST 44 H (13-39) U/L ALT 75 H (7-52) U/L Alkaline Phosphatase 121 H (34-104) U/L Troponin I High Sens (0-14) pg/ml Total Protein 5.1 L (6.0-8.3) gm/dl Albumin 3.1 L (3.4-5.0) gm/dl Globulin 2.0 L (2.5-4.0) gm/dl Albumin/Globulin Ratio 1.6 (0.9-2) Lipase (11-82) U/L Procalcitonin (0-0.5) ng/ml TSH (0.300-4.500) uIu/ml Free T4 (0.61-1.60) ng/dl Urine Color Yellow Urine Appearance Clear (Clear) Urine pH 6.0 (4.5-7.5) Ur Specific [place] 1.024 (1.000-1.030) Urine Protein Negative (Negative) Urine Glucose (UA) Negative (Negative) Urine Ketones Negative (Negative) Urine Blood Negative (Negative) Urine Nitrite Negative (Negative) Urine Bilirubin Negative (Negative) Urine Urobilinogen Negative (Negative) Ur Leukocyte Esterase Trace H (Negative) Urine WBC (Auto) 0-5 (0-5) /hpf Urine RBC (Auto) 3-5 H (0-2) /hpf U Hyaline Cast (Auto) 0-2 (0-2) /lpf U Epithel Cells (Auto) 0-2 (0-2) /hpf Urine Bacteria (Auto) None Seen (None Seen) Urine Opiates Screen Neg (Neg) Ur Methadone, Qual Neg (Neg) Urine Barbiturates Neg (Neg) Ur Phencyclidine (PCP) Neg (Neg) U Amphetamin/Meth Scrn Neg (Neg) MDMA (Ecstasy) Screen Neg (Neg) U Benzodiazepines Scrn Neg (Neg) Ur Cocaine Metabolite Neg (Neg) U Marijuana (THC) Screen Neg (Neg) Adenovirus (PCR) Not Detected (NotDetected) Anaplasma Smear A. phagocytophilum DNA Pending Babesia Smear Babesia microti DNA PCR Pending B. pertussis DNA (PCR) Not Detected (NotDetected) B.parapertussis DNA PCR Not Detected (NotDetected) Lyme Disease Screen (Negative) Lyme Disease IgG Ab (Negative) Lyme Disease IgM Ab (Negative) C. pneumoniae DNA (PCR) Not Detected (NotDetected) Coronavirus OC43 (PCR) Not Detected (NotDetected) Coronavirus HKU1 (PCR) Not Detected (NotDetected) Coronavirus 229E (PCR) Not Detected (NotDetected) SARS-CoV-2 (PCR) Not Detected (NotDetected) Coronavirus NL63 (PCR) Not Detected (NotDetected) E.chaffeensis DNA (PCR) Human Metapneumovir PCR Not Detected (NotDetected) Influenza Type A (PCR) Not Detected (NotDetected) Influenza Type B (PCR) Not Detected (NotDetected) M. pneumoniae (PCR) Not Detected (NotDetected) Parainfluenza 1 (PCR) Not Detected (NotDetected) Parainfluenza 2 (PCR) Not Detected (NotDetected) Parainfluenza 3 (PCR) Not Detected (NotDetected) Parainfluenza 4 (PCR) Not Detected (NotDetected) Q Fever Phase I IgG Ab Pending Q Fever Phase I IgM Ab Pending Q Fever Phase II IgG Ab Pending Q Fever Phase II IgM Ab Pending RSV (PCR) Not Detected (NotDetected) Entero/Rhino (PCR) Not Detected (NotDetected) Rickettsia IgG Ab Pending Rickettsia IgM Ab Pending Typhus Fever IgG Ab Pending Typhus Fever IgM Ab Pending 09/24/23 Range/Units 11:02 WBC (4.8-10.8) K/ul RBC (4.20-5.40) M/uL Hgb (12.0-16.0) g/dl Hct (37.0-47.0) % MCV (80.0-100.0) fL MCH (25.0-34.0) pg MCHC (32.0-36.0) g/dL RDW Std Deviation (36.4-46.3) fL RDW Coeff of Presley (11.5-14.5) % Plt Count (130-400) K/uL MPV (9.4-12.4) fL PT 10.4 (9.0-12.0) Seconds INR 0.9 (0.9-1.1) Sodium 139 (136-145) mmol/L Potassium 4.2 (3.5-5.1) mmol/L Chloride 106 (98-107) mmol/L Carbon Dioxide 27 (21-32) mmol/L Anion Gap 6 (3-11) BUN 17 (6-23) mg/dl Creatinine 0.74 (0.6-1.2) mg/dl Est Cr Clr Drug Dosing Not Reportable Est GFR ( Amer) 100.6 ml/min Est GFR (Non-Af Amer) 86.8 ml/min BUN/Creatinine Ratio 23.0 H (10-20) Glucose 89 (70-99(Fasting)) mg/dl Calcium 9.3 (8.6-10.3) mg/dl Phosphorus 3.5 (2.5-4.9) mg/dl Magnesium 2.0 (1.7-2.4) mg/dl Total Bilirubin 0.3 (0.2-1.0) mg/dl Direct Bilirubin 0.1 (0-0.2) mg/dl AST 94 H (13-39) U/L ALT 121 H (7-52) U/L Alkaline Phosphatase 159 H (34-104) U/L Troponin I High Sens 2.9 (0-14) pg/ml Total Protein 6.1 (6.0-8.3) gm/dl Albumin 3.7 (3.4-5.0) gm/dl Globulin (2.5-4.0) gm/dl Albumin/Globulin Ratio (0.9-2) Lipase 27 (11-82) U/L Procalcitonin 0.05 (0-0.5) ng/ml TSH < 0.010 L (0.300-4.500) uIu/ml Free T4 1.33 (0.61-1.60) ng/dl Urine Color Urine Appearance (Clear) Urine pH (4.5-7.5) Ur Specific [place] (1.000-1.030) Urine Protein (Negative) Urine Glucose (UA) (Negative) Urine Ketones (Negative) Urine Blood (Negative) Urine Nitrite (Negative) Urine Bilirubin (Negative) Urine Urobilinogen (Negative) Ur Leukocyte Esterase (Negative) Urine WBC (Auto) (0-5) /hpf Urine RBC (Auto) (0-2) /hpf U Hyaline Cast (Auto) (0-2) /lpf U Epithel Cells (Auto) (0-2) /hpf Urine Bacteria (Auto) (None Seen) Urine Opiates Screen (Neg) Ur Methadone, Qual (Neg) Urine Barbiturates (Neg) Ur Phencyclidine (PCP) (Neg) U Amphetamin/Meth Scrn (Neg) MDMA (Ecstasy) Screen (Neg) U Benzodiazepines Scrn (Neg) Ur Cocaine Metabolite (Neg) U Marijuana (THC) Screen (Neg) Adenovirus (PCR) (NotDetected) Anaplasma Smear See Comment A. phagocytophilum DNA Babesia Smear See Comment Babesia microti DNA PCR B. pertussis DNA (PCR) (NotDetected) B.parapertussis DNA PCR (NotDetected) Lyme Disease Screen Positive H (Negative) Lyme Disease IgG Ab Negative (Negative) Lyme Disease IgM Ab Negative (Negative) C. pneumoniae DNA (PCR) (NotDetected) Coronavirus OC43 (PCR) (NotDetected) Coronavirus HKU1 (PCR) (NotDetected) Coronavirus 229E (PCR) (NotDetected) SARS-CoV-2 (PCR) (NotDetected) Coronavirus NL63 (PCR) (NotDetected) E.chaffeensis DNA (PCR) Pending Human Metapneumovir PCR (NotDetected) Influenza Type A (PCR) (NotDetected) Influenza Type B (PCR) (NotDetected) M. pneumoniae (PCR) (NotDetected) Parainfluenza 1 (PCR) (NotDetected) Parainfluenza 2 (PCR) (NotDetected) Parainfluenza 3 (PCR) (NotDetected) Parainfluenza 4 (PCR) (NotDetected) Q Fever Phase I IgG Ab Q Fever Phase I IgM Ab Q Fever Phase II IgG Ab Q Fever Phase II IgM Ab RSV (PCR) (NotDetected) Entero/Rhino (PCR) (NotDetected) Rickettsia IgG Ab Rickettsia IgM Ab Typhus Fever IgG Ab Typhus Fever IgM Ab Diagnostic Findings ABDOMEN AND PELVIS CT WITH IV CONTRAST CT DOSE: 2101.65 mGy.cm HISTORY: Acute transabdominal pain abd pain, Gtube, nausea, diarrhea TECHNIQUE: Multiaxial CT images of the abdomen and pelvis were performed following the IV administration of 93 cc of Optiray, A dose lowering technique was utilized adhering to the principles of ALARA. COMPARISON STUDY: None. FINDINGS: Right IJ catheter distal tip terminates in the right atrium. Mild bibasilar linear atelectasis versus scarring. No free air. Unremarkable spleen, pancreas and adrenal glands. Cholecystectomy with likely postsurgical biliary ductal dilation. Patency of the hepatic and portal veins. Cortical thinning of the kidneys without hydronephrosis. Punctate nonobstructing calculi in the inferior pole left kidney. There is a hyperdense 10 mm indeterminate lesion of the posterior interpolar right kidney image 195. Mild nonspecific urinary bladder wall thickening. Hysterectomy. Atherosclerosis of the aorta and branch vessels without aneurysm. No lymphadenopathy. A gastrostomy tube is noted coiled within the stomach with distal tip within the gastroduodenal junction. Mild gastric wall thickening with partial distention. There is mild inflammatory stranding within the abdominal wall adjacent to the gastrostomy tube. There is a 6 x 10 cm circumscribed crescentic fluid collection within the deep subcutaneous tissues along the anterior abdominal wall inferomedial to the gastrostomy tube. Postoperative changes of the large and small bowel with areas of anastomotic suture. No bowel obstruction or bowel wall thickening. No ascites or mesenteric inflammation. Diastases recti. No acute fracture or destructive bone lesion. Cannulated bulges noted within the SI joints. IMPRESSION: 1. No bowel obstruction or bowel wall thickening. 2. A gastrostomy tube is in place. There is wall thickening within the left anterior abdominal wall surrounding the gastrostomy tube with an adjacent indeterminate 6 cm anterior abdominal wall fluid collection. Stability cannot be determined by imaging alone. 3. Indeterminate 10 mm right renal lesion could be correlated with a nonemergent follow-up ultrasound. 4. Additional findings as above.
--- NOTE | 2023-09-25 11:47 | Hospitalist Progress Note ---
Date of Service September 25, 2023 Assessment & Plan (1) Confusion: (2) Dehydration: (3) Abdominal fluid collection: (4) History of total colectomy: (5) Uses feeding tube: (6) Elevated LFTs: (7) Renal lesion: (8) Hypothyroidism: Plan Ms. Mosher is a 63-year-old female with PMH history of CVA, extensive history of diverticular disease s/p multiple bowel resections ultimately leading to total colectomy, GJ tube placement February 2023, history of recurrent small bowel obstructions, history of C. difficile infection, and other problems listed below who presents to the ED for evaluation of confusion and generalized weakness. Imaging revealed fluid collection around GJ tube. Discussion with IR was had on 09/24 and though there is a small fluid collection, it will likely not yield anything from IR aspiration. General surgery stated no surgical intervention. Plan for GI consult given concern for questionable leaking of stomach contents, thus with surrounding inflammation/irritation at site. #Acute metabolic encephalopathy Resolved this am, 2/2 dehydration Continue IVF at this time, treat as follows Follow infectious work up #Abnormal CT AB #Fluid collection near GJ Tube #Multiple recurrent SBO #Colectomy s/p GJ tube Patient presenting for evaluation of confusion and generalized weakness. Patient with history of extensive diverticular disease and recurrent SBO's s/p multiple bowel resections ultimately leading to total colectomy. Had GJ tube placed February 2023. In the ED, afebrile, no leukocytosis. CT ABD/pelvis shows wall thickening within the left anterior abdominal wall surrounding the gastrostomy tube with an adjacent indeterminate 6 cm anterior abdominal wall fluid collection. Follow infectious work up Continue Zosyn and daptomyci, deescalate as able Follow blood cultures General surgery contacted by ED -no surgical intervention Contacted IR -No IR aspiration at this time Consult GI for eval of GJ site to assess need for tube exhange/balloon inflation/bumper eval #Tube Feeds Home tube feeding regimen-Peptamen 1.5 3 cartons to run over 7 hours and Prosource 30 mL bolus 4 times a day with 60 mL water flushes and 30 mL flush after Prosource. Dietitian consult for tube feed management. Will resume after GI eval #Transaminitis Patient reports a history of elevated LFTs, no records available to review at this time T. bili 0.3, AST 94, ALT 121, alk phos 159 CT ABD/pelvis shows Cholecystectomy with likely postsurgical biliary ductal dilation. Follow up RUQ and Trend LFTs #Positive Lyme Screen Lyme screen positive however IgG and IgM negative. Anaplasma and Babesia smears negative for inclusion bodies, confirmatory testing pending. Follow western blot #Renal Lesion CT ABD/pelvis shows Indeterminate 10 mm right renal lesion could be correlated with a nonemergent follow-up ultrasound Renal ultrasound ordered #Hypothyroid TSH <0.010 with normal free T4 Continue home dose Synthroid, will need close outpatient follow-up #History of migraines On ubrogepant at home Ketorlac prn DVT PROPHYLAXIS SQ heparin Admission and Anticipated Discharge Date Admission Date: September 24, 2023 Subjective NAEO reports history of headaches Notes LUQ/epigastric discomfort, sharp/stabbing in character Denies nausea/vomiting, fevers or chills Physical Exam Constitutional: WD/WN, vitals as above Respiratory: normal respiratory effort, lungs clear to auscultation Cardiovascular: RRR, no murmur, no edema Gastrointestinal (Abdomen): PEG site with clean gauze in place, no overt drainage noted, tenderness to mild palpation along epigastrium/left upper quadrant, firmness noted but no appreciable fluid collections Results & Data Results & Data Vital Signs (Past 12 Hours) Vital Signs Temp Pulse Pulse Resp BP BP Pulse Ox 09/25/23 11:24 36.9 C 65 16 86/56 L 89/57 L 95 09/25/23 07:50 36.8 C 65 16 113/70 94 09/25/23 07:22 65 09/25/23 03:06 36.8 C 69 18 97/53 L 93 09/25/23 02:11 66 O2 Del Method 09/25/23 11:24 Room Air 09/25/23 07:50 Room Air 09/25/23 07:22 09/25/23 03:06 Room Air 09/25/23 02:11 Laboratory Results Short CBC 09/25/23 Range/Units 03:42 WBC 3.81 L (4.8-10.8) K/ul Hgb 11.1 L (12.0-16.0) g/dl Hct 34.7 L (37.0-47.0) % Plt Count 183 (130-400) K/uL BMP 09/25/23 03:42 Sodium 140 Potassium 3.7 Chloride 109 H Carbon Dioxide 26 BUN 13 Creatinine 0.81 Glucose 83 Calcium 8.4 L Liver Function 09/25/23 Range/Units 03:42 Total Bilirubin 0.4 (0.2-1.0) mg/dl AST 44 H (13-39) U/L ALT 75 H (7-52) U/L Alkaline Phosphatase 121 H (34-104) U/L Albumin 3.1 L (3.4-5.0) gm/dl Urine 09/24/23 Range/Units 14:46 Urine Color Yellow Urine Appearance Clear (Clear) Urine pH 6.0 (4.5-7.5) Ur Specific [place] 1.024 (1.000-1.030) Urine Protein Negative (Negative) Urine Glucose (UA) Negative (Negative) Medications Administered Home Medications Medication Instructions Recorded Confirmed Last Taken carisoprodol 350 mg tablet (Soma) 350 mg PO BID 09/24/23 09/24/23 Unknown cholecalciferol (vitamin D3) 10 0 mcg PO DAILY 09/24/23 09/24/23 Unknown mcg (400 unit) capsule (Vitamin D3) cyanocobalamin (vitamin B-12) 1,000 mcg IM UD 09/24/23 09/24/23 Unknown 1,000 mcg/mL injection solution duloxetine 60 mg capsule,delayed 60 mg PO DAILY 09/24/23 09/24/23 Unknown release (Cymbalta) erenumab-aooe 140 mg/mL 140 mg subcut UD 09/24/23 09/24/23 Unknown subcutaneous auto-injector (Aimovig Autoinjector) ezetimibe 10 mg tablet (Zetia) 10 mg PO DAILY 09/24/23 09/24/23 Unknown famotidine 40 mg tablet 40 mg PO DAILY 09/24/23 09/24/23 Unknown folic acid 1 mg tablet 1 mg PO DAILY 09/24/23 09/24/23 Unknown gabapentin 600 mg tablet 600 mg PO BID 09/24/23 09/24/23 Unknown levothyroxine 100 mcg tablet 100 mcg PO DAILY 09/24/23 09/24/23 Unknown lidocaine 5 % topical patch 1 patch topical DAILY 09/24/23 09/24/23 Unknown meclizine 25 mg tablet 25 mg PO BID PRN Vertigo 09/24/23 09/24/23 Unknown methenamine hippurate 1 gram tablet 1 g PO BID 09/24/23 09/24/23 Unknown omega 1-fje-adx-fish oil 1,000 mg 0 cap PO DAILY 09/24/23 09/24/23 Unknown (120 mg-180 mg) capsule (Fish Oil) promethazine 12.5 mg tablet 12.5 mg PO BID PRN nausea or 09/24/23 09/24/23 Unknown vomiting rosuvastatin 40 mg tablet 40 mg PO DAILY 09/24/23 09/24/23 Unknown spironolactone 50 mg tablet 50 mg PO DAILY 09/24/23 09/24/23 Unknown ubrogepant 50 mg tablet (Ubrelvy) 50 mg PO DAILY PRN Migraine 09/24/23 09/24/23 Unknown Headache zolpidem 10 mg tablet (Ambien) 10 mg PO HS 09/24/23 09/24/23 Unknown Active Medications Generic Name Dose Route Start Last Admin Trade Name Freq PRN Reason Stop Dose Admin Acetaminophen 650 mg 09/24/23 20:42 09/25/23 07:38 Acetaminophen 325 Mg Tab PO 10/24/23 20:41 650 mg Q4H PRN Administration pain/fever Ascorbic Acid 500 mg 09/25/23 09:00 09/25/23 08:39 Ascorbic Acid 500 Mg Tab PO 10/25/23 08:59 500 mg QAM FELICITY Administration Carisoprodol 350 mg 09/24/23 21:00 09/25/23 07:39 Carisoprodol 350 Mg Tablet PO 10/24/23 20:59 350 mg BID FELICITY Administration Duloxetine HCl 60 mg 09/25/23 09:00 09/25/23 07:39 Duloxetine Hcl 60 Mg Cap PO 10/25/23 08:59 60 mg DAILY FELICITY Administration Ezetimibe 10 mg 09/25/23 09:00 09/25/23 07:39 Ezetimibe 10 Mg Tab PO 10/25/23 08:59 10 mg DAILY FELICITY Administration Famotidine 40 mg 09/25/23 09:00 09/25/23 07:39 Famotidine 40 Mg Tablet PO 10/25/23 08:59 40 mg DAILY FELICITY Administration Folic Acid 1 mg 09/25/23 09:00 09/25/23 07:39 Folic Acid 1 Mg Tab PO 10/25/23 08:59 1 mg DAILY FELICITY Administration Gabapentin 600 mg 09/24/23 21:00 09/25/23 07:39 Gabapentin 600 Mg Tab PO 10/24/23 20:59 600 mg BID FELICITY Administration Heparin Sodium (Porcine) 5,000 units 09/24/23 22:00 09/25/23 05:01 Heparin Sod 5,000 Unit/0.5 Ml Vial SQ 10/24/23 21:59 5,000 units Q8 FELICITY Administration Daptomycin 375 mg/ Syringe 7.5 mls @ 3.75 mls/min 09/24/23 17:00 09/24/23 17:45 IV 10/08/23 16:59 3.75 mls/min Q24H FELICITY Administration Protocol Sodium Chloride 1,000 mls @ 80 mls/hr 09/24/23 20:42 09/25/23 08:40 Nss IV 10/24/23 20:41 80 mls/hr .[id number] FELICITY Administration Piperacillin Sod/Tazobactam 100 mls @ 25 mls/hr 09/24/23 22:00 09/25/23 09:13 Sod 4.5 gm/ Dextrose IV 10/01/23 21:59 Infused Q8H FELICITY Infusion Protocol Levothyroxine Sodium 75 mcg 09/25/23 06:30 09/25/23 05:01 Levothyroxine Sodium 75 Mcg Tablet PO 10/25/23 06:29 75 mcg DAILYBB FELICITY Administration Melatonin 3 mg 09/25/23 01:03 09/25/23 01:37 Melatonin 3 Mg Tab PO 10/25/23 01:02 3 mg HS PRN Administration Sleep Methenamine Hippurate 1 gm 09/24/23 21:00 09/25/23 07:39 Methenamine Hippurate 1 Gm Tab PO 10/24/23 20:59 1 gm BID FELICITY Administration Ondansetron HCl 4 mg 09/24/23 21:45 09/25/23 03:50 Ondansetron Inj 2 Mg/Ml 2 Ml Vial IV 10/24/23 21:44 4 mg Q6H PRN Administration Nausea And Vomiting Oxycodone HCl 5 mg 09/24/23 19:19 09/25/23 11:34 Oxycodone Hcl Ir 5 Mg Tab (Immediate Release) PO 10/08/23 19:18 5 mg Q6H PRN Administration Mod-Sev Pain (Scale 4-10) Senna/Docusate Sodium 1 tab 09/25/23 06:15 09/25/23 06:42 Docusate Sodium/Senna 50/8.6mg Tab PO 10/25/23 06:14 1 tab QAM FELICITY Administration Sterile Water 60 ml 09/24/23 20:42 09/25/23 07:39 Tube Feeding Water Flush GT 10/24/23 20:41 60 ml Q6H FELICITY Administration Vitamin D 25 mcg 09/25/23 09:00 09/25/23 07:39 Cholecalciferol 25 Mcg (1000 Units) Tab PO 10/25/23 08:59 25 mcg DAILY FELICITY Administration
--- NOTE | 2023-09-25 11:55 | Communication Note ---
Date of Service: September 25, 2023 Discussed case with Jose Roberto HAMMOND: no clear drainable collection appreciated, suspicious for stomach contents leaking Will consult GI to discuss exchange v balloon infection/adjustment
[2023-09-25] MEDS: LACTATED RINGER'S 500 ML IV ONE (12:09)
[2023-09-25] MEDS: LACTATED RINGER'S 1,000 ML IV SCH (12:54)
[2023-09-25] MEDS: KETOROLAC TROMETHAMINE 15 MG/ML VIAL IV PRN (12:54)
--- NOTE | 2023-09-25 12:55 | Gastrointestinal Consultation ---
Date of Consultation September 25, 2023 Assessment & Plan (1) Uses feeding tube: Saw the patient with Dr. Guzman who also saw and examined the patient. - start protonix 40mg BID. - will plan for EGD for tomorrow to evaluate for possible buried bumper. - we are unable to replace a GJ tube here. - she will continue to follow with her home GI when she returns home. 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 History of Present Illness Reason for Consultation: concern for leaking peg Requesting Physician: Kaitlynn Elias MD Attending Physician: Kaitlynn Elias MD History of Present Illness Patient is a 63 year old female with PMH history of CVA, extensive history of diverticular disease s/p multiple bowel resections ultimately leading to total colectomy, GJ tube placement February 2023, history of recurrent small bowel obstructions, history of C. difficile infection, who presents to the ED for evaluation of confusion and generalized weakness. Imaging revealed fluid collection around GJ tube. She had this placed at [facility] due to issue with oral intake. she is here currently visiting family. CT 09/24/23 shown a gas trostomy tube is in place. There is wall thickening within the left anterior abdominal wall surrounding the gastrostomy tube with an adjacent indeterminate 6 cm anterior abdominal wall fluid collection. Stability cannot be determined by imaging alone. Surgery saw and recommended no surgical intervention required at this time. IR felt there was no clear area to drain. GI consulted for evaluation as she can get leakage. she has pain around the peg site. otherwise, she feels well from a GI standpoint. Allergies Allergy/AdvReac Type Severity Reaction Status Date / Time Sulfa (Sulfonamide Allergy Unknown Unknown Verified 09/26/23 11:02 Antibiotics) ciprofloxacin [From Cipro] Allergy Anaphylaxis Verified 09/26/23 11:02 sulfamethoxazole Allergy Anaphylaxis Verified 09/26/23 11:02 [From Septra] trimethoprim [From Septra] Allergy Anaphylaxis Verified 09/26/23 11:02 Home Medications Medication Instructions Recorded Confirmed Type carisoprodol 350 mg tablet (Soma) 350 mg PO BID 09/24/23 09/24/23 History cholecalciferol (vitamin D3) 10 0 mcg PO DAILY 09/24/23 09/24/23 History mcg (400 unit) capsule (Vitamin D3) cyanocobalamin (vitamin B-12) 1,000 mcg IM UD 09/24/23 09/24/23 History 1,000 mcg/mL injection solution duloxetine 60 mg capsule,delayed 60 mg PO DAILY 09/24/23 09/24/23 History release (Cymbalta) erenumab-aooe 140 mg/mL 140 mg subcut UD 09/24/23 09/24/23 History subcutaneous auto-injector (Aimovig Autoinjector) ezetimibe 10 mg tablet (Zetia) 10 mg PO DAILY 09/24/23 09/24/23 History famotidine 40 mg tablet 40 mg PO DAILY 09/24/23 09/24/23 History folic acid 1 mg tablet 1 mg PO DAILY 09/24/23 09/24/23 History gabapentin 600 mg tablet 600 mg PO BID 09/24/23 09/24/23 History levothyroxine 100 mcg tablet 100 mcg PO DAILY 09/24/23 09/24/23 History lidocaine 5 % topical patch 1 patch topical DAILY 09/24/23 09/24/23 History meclizine 25 mg tablet 25 mg PO BID PRN Vertigo 09/24/23 09/24/23 History methenamine hippurate 1 gram tablet 1 g PO BID 09/24/23 09/24/23 History omega 1-oar-qxj-fish oil 1,000 mg 0 cap PO DAILY 09/24/23 09/24/23 History (120 mg-180 mg) capsule (Fish Oil) promethazine 12.5 mg tablet 12.5 mg PO BID PRN nausea or 09/24/23 09/24/23 History vomiting rosuvastatin 40 mg tablet 40 mg PO DAILY 09/24/23 09/24/23 History spironolactone 50 mg tablet 50 mg PO DAILY 09/24/23 09/24/23 History ubrogepant 50 mg tablet (Ubrelvy) 50 mg PO DAILY PRN Migraine 09/24/23 09/24/23 History Headache zolpidem 10 mg tablet (Ambien) 10 mg PO HS 09/24/23 09/24/23 History Patient History Medical History Hypothyroidism History of Clostridioides difficile infection History of small bowel obstruction Uses feeding tube History of CVA (cerebrovascular accident) Diverticular disease of both small and large intestine Surgical History History of bowel resection History of total colectomy Social History Smoking Status: Former smoker Hx Alcohol Use: No Hx Substance Use: No Preferred Language: [place]ian Communication Ability: Effective Beliefs That Will Affect Care: None Current Living Situation: Spouse and Family Other Information That Helps Us Care for You: No Feels Safe at Home: Yes Assistive Devices: Other Review of Systems Review of Systems: All systems reviewed & are unremarkable except as noted in HPI & below Physical Exam Constitutional: WD/WN, vitals as above Respiratory: normal respiratory effort, lungs clear to auscultation Cardiovascular: RRR, no murmur, no edema Gastrointestinal (Abdomen): normal bowel sounds, soft, nontender. peg in place in epigastric region. Psychiatric: Orientation: alert and oriented x 3 Affect: euthymic affect Results & Data Vital Signs (Past 12 Hours) Vital Signs Temp Pulse Pulse Resp BP BP Pulse Ox 09/25/23 11:24 98.4 F 65 16 86/56 L 89/57 L 95 09/25/23 07:50 98.2 F 65 16 113/70 94 09/25/23 07:22 65 09/25/23 03:06 98.2 F 69 18 97/53 L 93 09/25/23 02:11 66 O2 Del Method 09/25/23 11:24 Room Air 09/25/23 07:50 Room Air 09/25/23 07:22 09/25/23 03:06 Room Air 09/25/23 02:11 Coding Level of Care Code 04787 IN/OBS CONSULT LVL 4,60M Diagnoses Uses feeding tube Z97.8
--- NOTE | 2023-09-25 13:22 | Ultrasound Report ---
US liver CLINICAL HISTORY: elevated LFTs COMPARISON STUDY: CT of the abdomen and pelvis September 24, 2023. FINDINGS: Liver is sonographically normal. There is no biliary ductal dilatation status post cholecys tectomy. The pancreas is obscured by overlying bowel gas. There is no right hydronephrosis. A 9 mm cy stic focus within the midpole of the right kidney has peripheral echogenicity. This likely correspond s to the lesion on CT of September 24, 2023. This is no color flow. IMPRESSION: 1. 9 mm cystic focus within the midpole of the right kidney with peripheral echogenicity. This likely corresponds to the lesion on CT of September 24, 2023 and favors a proteinaceous cyst. 2. No biliary ductal dilatation status post cholecystectomy. ACT 112: Negative or not required by law. Electronically signed by: Bret Lenz M.D. 09/25/2023 1:20 PM
[2023-09-25 13:25] LABS: Adenovirus F 40/41 PCR Not Detected (NotDetected); Astrovirus PCR Not Detected (NotDetected); Campylobacter PCR Not Detected (NotDetected); Cryptosporidium PCR Not Detected (NotDetected); Cyclospora cayetanensis PCR Not Detected (NotDetected); Entamoeba histolytica PCR Not Detected (NotDetected); Enteroaggregative E.coli(EAEC) Not Detected (NotDetected); Enteropathogenic E.coli (EPEC) Not Detected (NotDetected); Enterotoxigenic E.coli (ETEC) Not Detected (NotDetected); Giardia lamblia PCR Not Detected (NotDetected); Norovirus GI/GII PCR Not Detected (NotDetected); Plesiomonas shigelloides PCR Not Detected (NotDetected); Rotavirus A PCR Not Detected (NotDetected); Salmonella PCR Not Detected (NotDetected); Sapovirus PCR Not Detected (NotDetected); Shiga-like Toxin E.coli (STEC) Not Detected (NotDetected); Shigella/Enteroinvasive E.coli Not Detected (NotDetected); Vibrio cholerae PCR Not Detected (NotDetected); Vibrio species PCR Not Detected (NotDetected); Yersinia enterocolitica PCR Not Detected (NotDetected)
[2023-09-25] MEDS: CYCLOBENZAPRINE HCL 10 MG TAB PO STA (16:27)
--- NOTE | 2023-09-25 19:49 | CT Scan Report ---
HEAD CT NONCONTRAST CT DOSE: 625.8 mGy.cm HISTORY: facial numbness/headache new TECHNIQUE: Multiaxial CT images of the head were performed without the use of intravenous contrast. A utomated exposure control was utilized for this study. A dose lowering technique was utilized adheri ng to the principles of ALARA. Comparison: Head CT 09/24/2023. Findings: The paranasal sinuses and mastoid air cells are clear. The calvarium and skull base are int act. The ventricles and sulci are within normal limits. There is no mass, hematoma, midline shift, or acute infarct. Impression: No acute intracranial abnormality. ACT 112: Negative or not required by law. Electronically signed by: Ketan Patel M.D. 09/25/2023 7:46 PM
[2023-09-25] MEDS: PANTOprazole 40 MG TAB PO SCH (20:09)
[2023-09-25] MEDS: ZOLPIDEM TARTRATE 5 MG TAB PO PRN (22:50)
[2023-09-26 05:20] LABS: Mean Corpuscular Hemoglobin 30.9 pg (25.0-34.0); Mean Corpuscular Hgb Conc 32.4 g/dL (32.0-36.0); Mean Corpuscular Volume 95.5 fL (80.0-100.0); Platelet Count 191 K/uL (130-400); RDW Coefficient of Variation 13.8 % (11.5-14.5); RDW Standard Deviation 49.1 fL (36.4-46.3); Red Blood Count 3.56 M/uL (4.20-5.40); White Blood Count 3.44 K/ul (4.8-10.8)
[2023-09-26 05:40] LABS: Albumin Globulin Ratio 1.4 (0.9-2); BUN Creatinine Ratio 10.2 (10-20); Bilirubin,Total 0.3 mg/dl (0.2-1.0); Calcium 8.4 mg/dl (8.6-10.3); Creatinine Clr Calc Pharmacy 67.5 ml/min; Est GFR (African American) 71.7 ml/min; Est GFR (Non-African American) 61.8 ml/min; Globulin 2.1 gm/dl (2.5-4.0); Magnesium 1.8 mg/dl (1.7-2.4); Phosphorus 4.6 mg/dl (2.5-4.9); Total Protein 5.1 gm/dl (6.0-8.3)
--- NOTE | 2023-09-26 08:34 | Anesthesiology Consultation ---
Date of Service September 26, 2023 Assessment & Plan Chart Review Chart Review: data entry initiated History Surgery Operation Date: 09/26/23 16:30 Proposed Procedures p Esophagogastroduodenoscopy Dr Guzman - Michael Zuniga Case, DO Height/Weight Height: 5 ft 7 in Weight: 87.1 kg Allergies Allergy/AdvReac Type Severity Reaction Status Date / Time Sulfa (Sulfonamide Allergy Unknown Unknown Unverified 09/24/23 14:50 Antibiotics) ciprofloxacin [From Cipro] Allergy Anaphylaxis Verified 09/24/23 12:50 Medications Home Medications Medication Instructions Recorded Confirmed Last Taken carisoprodol 350 mg tablet (Soma) 350 mg PO BID 09/24/23 09/24/23 Unknown cholecalciferol (vitamin D3) 10 0 mcg PO DAILY 09/24/23 09/24/23 Unknown mcg (400 unit) capsule (Vitamin D3) cyanocobalamin (vitamin B-12) 1,000 mcg IM UD 09/24/23 09/24/23 Unknown 1,000 mcg/mL injection solution duloxetine 60 mg capsule,delayed 60 mg PO DAILY 09/24/23 09/24/23 Unknown release (Cymbalta) erenumab-aooe 140 mg/mL 140 mg subcut UD 09/24/23 09/24/23 Unknown subcutaneous auto-injector (Aimovig Autoinjector) ezetimibe 10 mg tablet (Zetia) 10 mg PO DAILY 09/24/23 09/24/23 Unknown famotidine 40 mg tablet 40 mg PO DAILY 09/24/23 09/24/23 Unknown folic acid 1 mg tablet 1 mg PO DAILY 09/24/23 09/24/23 Unknown gabapentin 600 mg tablet 600 mg PO BID 09/24/23 09/24/23 Unknown levothyroxine 100 mcg tablet 100 mcg PO DAILY 09/24/23 09/24/23 Unknown lidocaine 5 % topical patch 1 patch topical DAILY 09/24/23 09/24/23 Unknown meclizine 25 mg tablet 25 mg PO BID PRN Vertigo 09/24/23 09/24/23 Unknown methenamine hippurate 1 gram tablet 1 g PO BID 09/24/23 09/24/23 Unknown omega 6-fmo-rqr-fish oil 1,000 mg 0 cap PO DAILY 09/24/23 09/24/23 Unknown (120 mg-180 mg) capsule (Fish Oil) promethazine 12.5 mg tablet 12.5 mg PO BID PRN nausea or 09/24/23 09/24/23 Unknown vomiting rosuvastatin 40 mg tablet 40 mg PO DAILY 09/24/23 09/24/23 Unknown spironolactone 50 mg tablet 50 mg PO DAILY 09/24/23 09/24/23 Unknown ubrogepant 50 mg tablet (Ubrelvy) 50 mg PO DAILY PRN Migraine 09/24/23 09/24/23 Unknown Headache zolpidem 10 mg tablet (Ambien) 10 mg PO HS 09/24/23 09/24/23 Unknown Active Medications Generic Name Dose Route Start Last Admin Trade Name Freq PRN Reason Stop Dose Admin Acetaminophen 650 mg 09/24/23 20:42 09/25/23 07:38 Acetaminophen 325 Mg Tab PO 10/24/23 20:41 650 mg Q4H PRN Administration pain/fever Ascorbic Acid 500 mg 09/25/23 21:00 09/25/23 21:27 Ascorbic Acid 500 Mg Tab PO 10/25/23 20:59 500 mg BID FELICITY Administration Carisoprodol 350 mg 09/24/23 21:00 09/25/23 20:14 Carisoprodol 350 Mg Tablet PO 10/24/23 20:59 350 mg BID FELICITY Administration Duloxetine HCl 60 mg 09/25/23 09:00 09/25/23 07:39 Duloxetine Hcl 60 Mg Cap PO 10/25/23 08:59 60 mg DAILY FELICITY Administration Ezetimibe 10 mg 09/25/23 09:00 09/25/23 07:39 Ezetimibe 10 Mg Tab PO 10/25/23 08:59 10 mg DAILY FELICITY Administration Famotidine 40 mg 09/25/23 09:00 09/25/23 07:39 Famotidine 40 Mg Tablet PO 10/25/23 08:59 40 mg DAILY FELICITY Administration Folic Acid 1 mg 09/25/23 09:00 09/25/23 07:39 Folic Acid 1 Mg Tab PO 10/25/23 08:59 1 mg DAILY FELICITY Administration Gabapentin 600 mg 09/24/23 21:00 09/25/23 20:09 Gabapentin 600 Mg Tab PO 10/24/23 20:59 600 mg BID FELICITY Administration Heparin Sodium (Porcine) 5,000 units 09/24/23 22:00 09/26/23 05:01 Heparin Sod 5,000 Unit/0.5 Ml Vial SQ 10/24/23 21:59 5,000 units Q8 FELICITY Administration Piperacillin Sod/Tazobactam 100 mls @ 25 mls/hr 09/24/23 22:00 09/26/23 05:00 Sod 4.5 gm/ Dextrose IV 10/01/23 21:59 25 mls/hr Q8H FELICITY Administration Protocol Lactated Ringer's 1,000 mls @ 125 mls/hr 09/25/23 12:15 09/26/23 04:21 Lr IV 10/25/23 12:14 125 mls/hr .Q8H FELICITY Administration Ketorolac Tromethamine 15 mg 09/25/23 12:20 09/26/23 04:18 Ketorolac Tromethamine 15 Mg/Ml Vial IV 09/30/23 12:19 15 mg Q6H PRN Administration Pain Levothyroxine Sodium 75 mcg 09/25/23 06:30 09/26/23 05:01 Levothyroxine Sodium 75 Mcg Tablet PO 10/25/23 06:29 75 mcg DAILYBB FELICITY Administration Methenamine Hippurate 1 gm 09/24/23 21:00 09/25/23 20:09 Methenamine Hippurate 1 Gm Tab PO 10/24/23 20:59 1 gm BID FELICITY Administration Ondansetron HCl 4 mg 09/24/23 21:45 09/26/23 04:18 Ondansetron Inj 2 Mg/Ml 2 Ml Vial IV 10/24/23 21:44 4 mg Q6H PRN Administration Nausea And Vomiting Oxycodone HCl 5 mg 09/24/23 19:19 09/26/23 05:00 Oxycodone Hcl Ir 5 Mg Tab (Immediate Release) PO 10/08/23 19:18 5 mg Q6H PRN Administration Mod-Sev Pain (Scale 4-10) Pantoprazole Sodium 40 mg 09/25/23 21:00 09/25/23 20:09 Pantoprazole 40 Mg Tab PO 10/25/23 20:59 40 mg BID FELICITY Administration Senna/Docusate Sodium 1 tab 09/25/23 06:15 09/25/23 06:42 Docusate Sodium/Senna 50/8.6mg Tab PO 10/25/23 06:14 1 tab QAM FELICITY Administration Sterile Water 60 ml 09/24/23 20:42 09/26/23 02:28 Tube Feeding Water Flush GT 10/24/23 20:41 Not Given Q6H FELICITY Vitamin D 25 mcg 09/25/23 09:00 09/25/23 07:39 Cholecalciferol 25 Mcg (1000 Units) Tab PO 10/25/23 08:59 25 mcg DAILY FELICITY Administration Zolpidem Tartrate 5 mg 09/25/23 12:21 09/25/23 22:50 Zolpidem Tartrate 5 Mg Tab PO 10/25/23 12:20 5 mg HS PRN Administration Sleep Past Medical History Medical History Hypothyroidism History of Clostridioides difficile infection History of small bowel obstruction Uses feeding tube History of CVA (cerebrovascular accident) Diverticular disease of both small and large intestine Past Surgical History Surgical History History of bowel resection History of total colectomy Social History Smoking Status: Former smoker Hx Alcohol Use: No Hx Substance Use: No Physical Exam Vital Signs Last Vital Signs Temp 98.4 F 09/26/23 07:43 Pulse 68 09/26/23 07:43 Resp 16 09/26/23 07:43 BP 115/72 09/26/23 07:43 Pulse Ox 98 09/26/23 07:43 O2 Del Method Room Air 09/26/23 07:43 Testing Laboratory Results 09/26/23 03:57 09/26/23 03:57 PT 10.4 Seconds (9.0-12.0) 09/24/23 11:02 INR 0.9 (0.9-1.1) 09/24/23 11:02 Urine Color Yellow 09/24/23 14:46 Urine Appearance Clear (Clear) 09/24/23 14:46 Urine pH 6.0 (4.5-7.5) 09/24/23 14:46 Ur Specific Scott 1.024 (1.000-1.030) 09/24/23 14:46 Urine Protein Negative (Negative) 09/24/23 14:46 Urine Glucose (UA) Negative (Negative) 09/24/23 14:46 Urine Ketones Negative (Negative) 09/24/23 14:46 Urine Nitrite Negative (Negative) 09/24/23 14:46 Ur Leukocyte Esterase Trace (Negative) H 09/24/23 14:46 Urine WBC (Auto) 0-5 /hpf (0-5) 09/24/23 14:46 Urine RBC (Auto) 3-5 /hpf (0-2) H 09/24/23 14:46 U Hyaline Cast (Auto) 0-2 /lpf (0-2) 09/24/23 14:46 U Epithel Cells (Auto) 0-2 /hpf (0-2) 09/24/23 14:46 Urine Bacteria (Auto) None Seen (None Seen) 09/24/23 14:46 09/25/23 Unknown Gram Stain - Final Abdomen 09/24/23 11:38 Aerobic Blood Culture - Preliminary Blood No growth in Aerobic bottle after 24 hours. Anaerobic Blood Culture - Final 09/24/23 11:02 Aerobic Blood Culture - Preliminary Blood No growth in Aerobic bottle after 24 hours. Anaerobic Blood Culture - Preliminary No growth in Anaerobic bottle after 24 hours. Electrocardiogram Date: 09/24/23 Normal sinus rhythm, rate 71 bpm Possible Left atrial enlargement Borderline ECG No previous ECGs available Chest X-Ray Date: 09/24/23 FINDINGS: A port catheter is seen. The cardiomediastinal silhouette is normal. Tenting of the left hemidiaphragm is seen with associated left lower lung airspace opacity. Cannot exclude left pleural effusion. IMPRESSION: Tenting of the left hemidiaphragm likely represents a column component of atelectasis/scarring. Superimposed pneumonia cannot be excluded.
--- NOTE | 2023-09-26 10:31 | Magnetic Resonance Report ---
Brain MRI WITHOUT CONTRAST HISTORY: Confusion. neurologic symptoms, new headache TECHNIQUE: Multiplanar multisequence MRI of the brain was performed without the use of contrast. COMPARISON STUDY: Head CT 09/25/2023. FINDINGS: No areas restricted diffusion to suggest acute infarction. Evidence for a partially empty s idris. The remaining midline structures are intact. The paranasal sinuses and mastoid air cells are cl ear. The orbits are unremarkable. The major vascular flow-voids at the skull base are well-maintained . The ventricles and sulci are within normal limits. There is no mass, hematoma, midline shift. Promi nent perivascular space noted inferior to the left basal ganglia. Small patchy focus of T2 hyperinten sity seen within the periphery of the right occipital lobe best seen on axial T2 image 10 and coronal FLAIR image 23. There are few additional punctate foci of T2 hyperintensity seen within the periatri al ventricular white matter of the segmental brain. These favor minimal microvascular ischemic change s given the patient's age. IMPRESSION: 1. No acute infarct or intracranial hemorrhage. 2. Small patchy area of T2 hyperintensity within the periphery of the right occipital lobe. This is i ndeterminate. Early changes of posterior reversible encephalopathy syndrome or gliosis from an old in sult are considered in the differential diagnosis. Follow-up brain MRI with contrast recommended to e xclude the less likely possibility of an underlying intracranial lesion. ACT 112: Negative or not required by law. Electronically signed by: Ketan Patel M.D. 09/26/2023 10:28 AM
--- NOTE | 2023-09-26 10:53 | History & Physical Bridge Note ---
Date of Service September 26, 2023 History & Physical Bridge Note I have examined the patient, reviewed the History & Physical and in the interval since the performance of the History & Physical I have noted the following changes of clinical significance: no changes noted. patient still with pain at peg site. rated 7/10. also having associated nausea. no chest pain, sob, vomiting. planned for EGD today to further assess. Supervising Physician Co-Signing Physician Notes Agree with MARIA C Castillo as above Abd: Soft, tender at PEG site, ND Continue current therapy and supportive care Proceed with EGD now.
[2023-09-26] MEDS: SODIUM CHLORIDE 0.9% 500 ML IV SCH (11:14)
--- NOTE | 2023-09-26 11:45 | Hospitalist Progress Note ---
Date of Service September 26, 2023 Assessment & Plan (1) Confusion: (2) Dehydration: (3) Abdominal fluid collection: (4) History of total colectomy: (5) Uses feeding tube: (6) Elevated LFTs: (7) Renal lesion: (8) Hypothyroidism: Plan Ms. Mosher is a 63-year-old female with PMH history of CVA, extensive history of diverticular disease s/p multiple bowel resections ultimately leading to total colectomy, GJ tube placement February 2023, history of recurrent small bowel obstructions, history of C. difficile infection, and other problems listed below who presents to the ED for evaluation of confusion and generalized weakness. Imaging revealed fluid collection around GJ tube. Discussion with IR was had on 09/24 and though there is a small fluid collection, it will likely not yield anything from IR aspiration. General surgery stated no surgical intervention. Plan for GI consult given concern for questionable leaking of stomach contents, thus with surrounding inflammation/irritation at site. #Acute metabolic encephalopathy*resolved #Prior CVA reportedly 2018 #Acute on chronic headache #Stroke like symptoms, ?recrudescence Encephalopathy resolved; question of stroke like symptoms with facial droop, reportedly similar to prior stroke; CT head normal x 2, MRI head with area of intensity ?gliosis v PRES. Suspect likely recrudescence and headache exacerbated by dehydration/low BP Continue Ketorlac and IVF until PO Patient declined steroid use Flexeril with moderate relief Neurology to review for any new changes and imaging recommendations given glosis reported Triptan contraindicated give history Follow infectious work up #Abnormal CT AB #Fluid collection near GJ Tube #Multiple recurrent SBO #Colectomy s/p GJ tube Patient presenting for evaluation of confusion and generalized weakness. Patien t with history of extensive diverticular disease and recurrent SBO's s/p multiple bowel resections ultimately leading to total colectomy. Had GJ tube placed February 2023. In the ED, afebrile, no leukocytosis. CT ABD/pelvis shows wall thickening within the left anterior abdominal wall surrounding the gastrostomy tube with an adjacent indeterminate 6 cm anterior abdominal wall fluid collection. Follow infectious work up Continue Zosyn and daptomyci deescalate as able Follow blood cultures General surgery contacted by ED -no surgical intervention Contacted IR -No IR aspiration at this time Consult GI for eval of GJ site to assess need for tube exhange/balloon inflation/bumper eval -Pending EGD today, will need transfer if PEG requires exchange #Tube Feeds Home tube feeding regimen-Peptamen 1.5 3 cartons to run over 7 hours and Prosource 30 mL bolus 4 times a day with 60 mL water flushes and 30 mL flush after Prosource. Dietitian consult for tube feed management. Will resume after GI eval/EGD #Transaminitis Patient reports a history of elevated LFTs, no records available to review at this time T. bili 0.3, AST 94, ALT 121, alk phos 159 CT ABD/pelvis shows Cholecystectomy with likely postsurgical biliary ductal dilation. Follow up RUQ and Trend LFTs Abnormal LFT workup ordered #Positive Lyme Screen Lyme screen positive however IgG and IgM negative. Anaplasma and Babesia smears negative for inclusion bodies, confirmatory testing pending. Follow western blot #Renal Lesion CT ABD/pelvis shows Indeterminate 10 mm right renal lesion could be correlated with a nonemergent follow-up ultrasound Renal ultrasound ordered #Hypothyroid TSH <0.010 with normal free T4 Continue home dose Synthroid, will need close outpatient follow-up #History of migraines On ubrogepant at home Ketorlac prn DVT PROPHYLAXIS SQ heparin Admission and Anticipated Discharge Date Admission Date: September 24, 2023 Subjective Patient reports acute on chronic headache, different in character/quality than usual headaches. Does not have home ubrevly. Declined steroids. Some relief with flexeril/fluids/ketorolac. States old stroke symptoms (left facial droop, LLE sensory deficit) feel prominent today---but notes improvement since yesterday overall despite ongoing nausea and PEG pain Physical Exam Constitutional: WD/WN, vitals as above AOx3, engaged in conversation. gestures well and interactive. Gastrointestinal (Abdomen): tenderness along epigastric region/LUQ Neurologic: left facial droop, reportedly chronic, mild nasolabial flattening. sensation "blunted" on LLE, but 5/5 strength all extremities. other cranial nerves intact, no aphasia or dysarthria Results & Data Results & Data Vital Signs (Past 12 Hours) Vital Signs Temp Pulse Pulse Resp BP Pulse Ox O2 Del Method 09/26/23 11:04 36.2 C L 55 L 16 119/54 L 95 Room Air 09/26/23 07:43 36.9 C 68 16 115/72 98 Room Air 09/26/23 05:57 72 09/26/23 03:51 36.3 C L 68 20 104/67 92 Room Air 09/26/23 00:11 36.6 C 71 20 107/62 92 Room Air Laboratory Results Short CBC 09/26/23 Range/Units 03:57 WBC 3.44 L (4.8-10.8) K/ul Hgb 11.0 L (12.0-16.0) g/dl Hct 34.0 L (37.0-47.0) % Plt Count 191 (130-400) K/uL BMP 09/26/23 03:57 Sodium 141 Potassium 4.0 Chloride 110 H Carbon Dioxide 26 BUN 10 Creatinine 0.98 Glucose 82 Calcium 8.4 L Liver Function 09/26/23 Range/Units 03:57 Total Bilirubin 0.3 (0.2-1.0) mg/dl AST 125 H (13-39) U/L ALT 138 H (7-52) U/L Alkaline Phosphatase 238 H (34-104) U/L Albumin 3.0 L (3.4-5.0) gm/dl Medications Administered Home Medications Medication Instructions Recorded Confirmed Last Taken carisoprodol 350 mg tablet (Soma) 350 mg PO BID 09/24/23 09/24/23 Unknown cholecalciferol (vitamin D3) 10 0 mcg PO DAILY 09/24/23 09/24/23 Unknown mcg (400 unit) capsule (Vitamin D3) cyanocobalamin (vitamin B-12) 1,000 mcg IM UD 09/24/23 09/24/23 Unknown 1,000 mcg/mL injection solution duloxetine 60 mg capsule,delayed 60 mg PO DAILY 09/24/23 09/24/23 Unknown release (Cymbalta) erenumab-aooe 140 mg/mL 140 mg subcut UD 09/24/23 09/24/23 Unknown subcutaneous auto-injector (Aimovig Autoinjector) ezetimibe 10 mg tablet (Zetia) 10 mg PO DAILY 09/24/23 09/24/23 Unknown famotidine 40 mg tablet 40 mg PO DAILY 09/24/23 09/24/23 Unknown folic acid 1 mg tablet 1 mg PO DAILY 09/24/23 09/24/23 Unknown gabapentin 600 mg tablet 600 mg PO BID 09/24/23 09/24/23 Unknown levothyroxine 100 mcg tablet 100 mcg PO DAILY 09/24/23 09/24/23 Unknown lidocaine 5 % topical patch 1 patch topical DAILY 09/24/23 09/24/23 Unknown meclizine 25 mg tablet 25 mg PO BID PRN Vertigo 09/24/23 09/24/23 Unknown methenamine hippurate 1 gram tablet 1 g PO BID 09/24/23 09/24/23 Unknown omega 7-hzm-gti-fish oil 1,000 mg 0 cap PO DAILY 09/24/23 09/24/23 Unknown (120 mg-180 mg) capsule (Fish Oil) promethazine 12.5 mg tablet 12.5 mg PO BID PRN nausea or 09/24/23 09/24/23 Unknown vomiting rosuvastatin 40 mg tablet 40 mg PO DAILY 09/24/23 09/24/23 Unknown spironolactone 50 mg tablet 50 mg PO DAILY 09/24/23 09/24/23 Unknown ubrogepant 50 mg tablet (Ubrelvy) 50 mg PO DAILY PRN Migraine 09/24/23 09/24/23 Unknown Headache zolpidem 10 mg tablet (Ambien) 10 mg PO HS 09/24/23 09/24/23 Unknown Active Medications Generic Name Dose Route Start Last Admin Trade Name Marita PRN Reason Stop Dose Admin Acetaminophen 650 mg 09/24/23 20:42 09/25/23 07:38 Acetaminophen 325 Mg Tab PO 10/24/23 20:41 650 mg Q4H PRN Administration pain/fever Ascorbic Acid 500 mg 09/25/23 21:00 09/25/23 21:27 Ascorbic Acid 500 Mg Tab PO 10/25/23 20:59 500 mg BID FELICITY Administration Carisoprodol 350 mg 09/24/23 21:00 09/25/23 20:14 Carisoprodol 350 Mg Tablet PO 10/24/23 20:59 350 mg BID FELICITY Administration Duloxetine HCl 60 mg 09/25/23 09:00 09/25/23 07:39 Duloxetine Hcl 60 Mg Cap PO 10/25/23 08:59 60 mg DAILY FELICITY Administration Ezetimibe 10 mg 09/25/23 09:00 09/25/23 07:39 Ezetimibe 10 Mg Tab PO 10/25/23 08:59 10 mg DAILY FELICITY Administration Famotidine 40 mg 09/25/23 09:00 09/25/23 07:39 Famotidine 40 Mg Tablet PO 10/25/23 08:59 40 mg DAILY FELICITY Administration Folic Acid 1 mg 09/25/23 09:00 09/25/23 07:39 Folic Acid 1 Mg Tab PO 10/25/23 08:59 1 mg DAILY FELICITY Administration Gabapentin 600 mg 09/24/23 21:00 09/25/23 20:09 Gabapentin 600 Mg Tab PO 10/24/23 20:59 600 mg BID FELICITY Administration Heparin Sodium (Porcine) 5,000 units 09/24/23 22:00 09/26/23 05:01 Heparin Sod 5,000 Unit/0.5 Ml Vial SQ 10/24/23 21:59 5,000 units Q8 FELICITY Administration Piperacillin Sod/Tazobactam 100 mls @ 25 mls/hr 09/24/23 22:00 09/26/23 09:43 Sod 4.5 gm/ Dextrose IV 10/01/23 21:59 Infused Q8H FELICITY Infusion Protocol Lactated Ringer's 1,000 mls @ 125 mls/hr 09/25/23 12:15 09/26/23 04:21 Lr IV 10/25/23 12:14 125 mls/hr .Q8H FELICITY Administration Sodium Chloride 500 mls @ 15 mls/hr 09/26/23 11:00 09/26/23 11:14 Nss IV 10/26/23 10:59 15 mls/hr .Q24H FELICITY Administration Ketorolac Tromethamine 15 mg 09/25/23 12:20 09/26/23 10:47 Ketorolac Tromethamine 15 Mg/Ml Vial IV 09/30/23 12:19 15 mg Q6H PRN Administration Pain Levothyroxine Sodium 75 mcg 09/25/23 06:30 09/26/23 05:01 Levothyroxine Sodium 75 Mcg Tablet PO 10/25/23 06:29 75 mcg DAILYBB FELICITY Administration Methenamine Hippurate 1 gm 09/24/23 21:00 09/25/23 20:09 Methenamine Hippurate 1 Gm Tab PO 10/24/23 20:59 1 gm BID FELICITY Administration Ondansetron HCl 4 mg 09/24/23 21:45 09/26/23 10:47 Ondansetron Inj 2 Mg/Ml 2 Ml Vial IV 10/24/23 21:44 4 mg Q6H PRN Administration Nausea And Vomiting Oxycodone HCl 5 mg 09/24/23 19:19 09/26/23 05:00 Oxycodone Hcl Ir 5 Mg Tab (Immediate Release) PO 10/08/23 19:18 5 mg Q6H PRN Administration Mod-Sev Pain (Scale 4-10) Pantoprazole Sodium 40 mg 09/25/23 21:00 09/25/23 20:09 Pantoprazole 40 Mg Tab PO 10/25/23 20:59 40 mg BID FELICITY Administration Senna/Docusate Sodium 1 tab 09/25/23 06:15 09/25/23 06:42 Docusate Sodium/Senna 50/8.6mg Tab PO 10/25/23 06:14 1 tab QAM FELICITY Administration Sterile Water 60 ml 09/24/23 20:42 09/26/23 09:43 Tube Feeding Water Flush GT 10/24/23 20:41 Not Given Q6H FELICITY Vitamin D 25 mcg 09/25/23 09:00 09/25/23 07:39 Cholecalciferol 25 Mcg (1000 Units) Tab PO 10/25/23 08:59 25 mcg DAILY FELICITY Administration Zolpidem Tartrate 5 mg 09/25/23 12:21 09/25/23 22:50 Zolpidem Tartrate 5 Mg Tab PO 10/25/23 12:20 5 mg HS PRN Administration Sleep
--- NOTE | 2023-09-26 12:10 | GI REPORT ---
Patient Name: Marybel Mosher Procedure Date: 09/26/2023 11:30 AM Date of : 1960 Admit Type: Inpatient Age: 63 Gender: Female Attending MD: Michael Guzman DO, Procedure: Upper GI endoscopy Providers: Michael Guzman DO Referring MD: Kaitlynn Elias MD Indications: Epigastric abdominal pain Medicines: Monitored Anesthesia Care Complications: No immediate complications. Estimated Blood Loss: Estimated blood loss: none. Procedure: Pre-Anesthesia Assessment: - Prior to the procedure, a History and Physical was performed, and patient medications and allergies were reviewed. The patient's tolerance of previous anesthesia was also reviewed. The risks and benefits of the procedure and the sedation options and risks were discussed with the patient. All questions were answered, and informed consent was obtained. Prior Anticoagulants: The patient has taken no anticoagulant or antiplatelet agents. ASA Grade Assessment: III - A patient with severe systemic disease. After reviewing the risks and benefits, the patient was deemed in satisfactory condition to undergo the procedure. After obtaining informed consent, the endoscope was passed under direct vision. Throughout the procedure, the patient's blood pressure, pulse, and oxygen saturations were monitored continuously. The Endoscope was introduced through the mouth, and advanced to the second part of duodenum. The upper GI endoscopy was accomplished without difficulty. The patient tolerated the procedure well. Findings: The esophagus was normal. There was evidence of an intact gastrostomy with a patent G-tube present in the gastric body. This was characterized by ulceration. The examined duodenum was normal. Impression: - Normal esophagus. - Intact gastrostomy with a patent G-tube present characterized by ulceration. - J-tube intact but coiled in the stomach and not able to be advanced with Rat-tooth forceps. - Normal examined duodenum. - No specimens collected. Recommendation: - Please follow the post-PEG recommendations including: change dressing on top of bumper daily and start using PEG today. - Do not place anything under external bumper. - Continue present medications. - Return patient to [facility] for ongoing care. Michael Guzman DO 09/26/2023 12:09:19 PM This report has been signed electronically. Note Initiated On: 09/26/2023 11:30 AM Number of Addenda: 0 I attest to the content of the Intraoperative Record and orders documented therein, exceptions below {[id number]}
--- NOTE | 2023-09-26 12:34 | Anesthesiology Progress Note ---
Date of Service September 26, 2023 Anesthesia Post Procedure Vital Signs Vital Signs: Temp Pulse Pulse Resp BP BP Pulse Ox 09/26/23 12:20 72 16 141/63 H 96 09/26/23 12:05 75 16 109/61 96 09/26/23 11:04 97.2 F L 55 L 16 119/54 L 95 09/26/23 07:43 98.4 F 68 16 115/72 98 09/26/23 05:57 72 09/26/23 03:51 97.3 F L 68 20 104/67 92 09/26/23 00:11 97.9 F 71 20 107/62 92 09/25/23 23:32 68 09/25/23 19:44 98.4 F 93 H 20 94/56 L 94 09/25/23 19:14 106/65 09/25/23 16:19 97.9 F 63 16 88/50 L 86/52 L 96 09/25/23 14:53 62 O2 Del Method 09/26/23 12:20 Room Air 09/26/23 12:05 Room Air 09/26/23 11:04 Room Air 09/26/23 07:43 Room Air 09/26/23 05:57 09/26/23 03:51 Room Air 09/26/23 00:11 Room Air 09/25/23 23:32 09/25/23 19:44 Room Air 09/25/23 19:14 09/25/23 16:19 Room Air 09/25/23 14:53 Pain Intensity Abdomen: Pain Intensity: 8 Transfer of Care Handoff Completed per policy Notes Mental Status: alert / awake / arousable and participated in evaluation Patient Amnestic to Procedure: Yes Nausea / Vomiting: adequately controlled Pain: adequately controlled Airway Patency, RR, SpO2: stable & adequate BP & HR: stable & adequate Hydration State: stable & adequate Anesthetic Complications: no major complications apparent and Pt Satisfied with anesthetic care
--- NOTE | 2023-09-26 13:12 | Communication Note ---
Date of Service: September 26, 2023 EGD results reviewed: intact PEG. Bumper adjusted. Change bumper daily, nothing under the bumper per recommendations. Start tube feeds
[2023-09-26] MEDS ORDERED: PEPTAMEN 1.5 CAL 1,000 ML BAG JT SCH (13:15)
[2023-09-26] MEDS: PROMETHAZINE HCL 12.5 MG/10 ML UDP PO PRN (13:17)
[2023-09-26] MEDS: TUBE FEEDING WATER FLUSH GT SCH (16:00)
--- NOTE | 2023-09-26 16:06 | Neurology Consultation ---
Date of Consultation September 26, 2023 Assessment & Plan (1) Headache: Headache consistent with fluctuations of her baseline migraine. MRI finding is not consistent with PRES but rather her prior stroke. No further neurologic workup. Recommend she try Ubrelvy at home and follow-up with her [facility] neurologist. Telehealth Consultation Telehealth Information Telehealth Information: I performed this visit using a real-time telehealth connection between my location and the patients location ([facility]). After connecting through interactive tele-video, patient was identified by name and date of and/or wristband check.Patient (or authorized healthcare leather goods sales representative) was informed that this was a telemedicine visit and it was being conducted confidentially over secure lines. My office door was closed and no one else was present in the room with me.Patient (or authorized healthcare leather goods sales representative) provided consent to proceed with the visit, expressed an understanding of privacy and security of the telemedicine visit, and gave permission to have a hospital leather goods sales representative in the room in order to assist with the visit and to conduct portions of the visit, as needed. I informed the patient (or authorized healthcare leather goods sales representative) that I reviewed their record and presented the opportunity for them to ask any questions regarding the visit today. The patient agreed to participate. History of Present Illness Reason for Consultation: Migraine Requesting Physician: Dr. Elias Attending Physician: Kaitlynn Elias MD History of Present Illness Marybel Mosher is a 63 yo F with a longstanding history of migraine and is currently admitted for dehydration and nutritional concerns given her total colectomy. She has never been to [facility] in the past and many of her doctors are in [facility] and [facility]. She reports that over the past 3 weeks in the setting of her worsening GI problems she has woken up with a severe frontal headache. No history of sleep apnea. She was on amovig and feels that it has stopped being effective but has not had a chance to start Ubrevly she has at home. Per her she was confused when she first came in but that has since resolved. Allergies Allergy/AdvReac Type Severity Reaction Status Date / Time Sulfa (Sulfonamide Allergy Unknown Unknown Verified 09/26/23 11:02 Antibiotics) ciprofloxacin [From Cipro] Allergy Anaphylaxis Verified 09/26/23 11:02 sulfamethoxazole Allergy Anaphylaxis Verified 09/26/23 11:02 [From Septra] trimethoprim [From Septra] Allergy Anaphylaxis Verified 09/26/23 11:02 Home Medications Medication Instructions Recorded Confirmed Type carisoprodol 350 mg tablet (Soma) 350 mg PO BID 09/24/23 09/24/23 History cholecalciferol (vitamin D3) 10 0 mcg PO DAILY 09/24/23 09/24/23 History mcg (400 unit) capsule (Vitamin D3) cyanocobalamin (vitamin B-12) 1,000 mcg IM UD 09/24/23 09/24/23 History 1,000 mcg/mL injection solution duloxetine 60 mg capsule,delayed 60 mg PO DAILY 09/24/23 09/24/23 History release (Cymbalta) erenumab-aooe 140 mg/mL 140 mg subcut UD 09/24/23 09/24/23 History subcutaneous auto-injector (Aimovig Autoinjector) ezetimibe 10 mg tablet (Zetia) 10 mg PO DAILY 09/24/23 09/24/23 History famotidine 40 mg tablet 40 mg PO DAILY 09/24/23 09/24/23 History folic acid 1 mg tablet 1 mg PO DAILY 09/24/23 09/24/23 History gabapentin 600 mg tablet 600 mg PO BID 09/24/23 09/24/23 History levothyroxine 100 mcg tablet 100 mcg PO DAILY 09/24/23 09/24/23 History lidocaine 5 % topical patch 1 patch topical DAILY 09/24/23 09/24/23 History meclizine 25 mg tablet 25 mg PO BID PRN Vertigo 09/24/23 09/24/23 History methenamine hippurate 1 gram tablet 1 g PO BID 09/24/23 09/24/23 History omega 0-tow-krg-fish oil 1,000 mg 0 cap PO DAILY 09/24/23 09/24/23 History (120 mg-180 mg) capsule (Fish Oil) promethazine 12.5 mg tablet 12.5 mg PO BID PRN nausea or 09/24/23 09/24/23 History vomiting rosuvastatin 40 mg tablet 40 mg PO DAILY 09/24/23 09/24/23 History spironolactone 50 mg tablet 50 mg PO DAILY 09/24/23 09/24/23 History ubrogepant 50 mg tablet (Ubrelvy) 50 mg PO DAILY PRN Migraine 09/24/23 09/24/23 History Headache zolpidem 10 mg tablet (Ambien) 10 mg PO HS 09/24/23 09/24/23 History Patient History Medical History Hypothyroidism History of Clostridioides difficile infection History of small bowel obstruction Uses feeding tube History of CVA (cerebrovascular accident) Diverticular disease of both small and large intestine Surgical History History of bowel resection History of total colectomy Social History Smoking Status: Former smoker Hx Alcohol Use: No Hx Substance Use: No Preferred Language: Yakut Communication Ability: Effective Beliefs That Will Affect Care: None Current Living Situation: Spouse and Family Other Information That Helps Us Care for You: No Feels Safe at Home: Yes Assistive Devices: Other Review of Systems +headache Physical Exam Awake and alert, speech fluent, oriented x3, no facial asymmetry, spontaneous movements were symmetric and antigravity. Results & Data Vital Signs (Past 12 Hours) Vital Signs Temp Pulse Pulse Resp BP Pulse Ox O2 Del Method 09/26/23 15:54 36.8 C 97 H 16 108/61 95 Room Air 09/26/23 12:35 64 16 127/62 93 Room Air 09/26/23 12:20 72 16 141/63 H 96 Room Air 09/26/23 12:05 75 16 109/61 96 Room Air 09/26/23 11:04 36.2 C L 55 L 16 119/54 L 95 Room Air 09/26/23 07:43 36.9 C 68 16 115/72 98 Room Air 09/26/23 05:57 72 Laboratory Results Abnormal lab results 09/26/23 Range/Units 03:57 WBC 3.44 L (4.8-10.8) K/ul RBC 3.56 L (4.20-5.40) M/uL Hgb 11.0 L (12.0-16.0) g/dl Hct 34.0 L (37.0-47.0) % RDW Std Deviation 49.1 H (36.4-46.3) fL Chloride 110 H (98-107) mmol/L Calcium 8.4 L (8.6-10.3) mg/dl AST 125 H (13-39) U/L ALT 138 H (7-52) U/L Alkaline Phosphatase 238 H (34-104) U/L Total Protein 5.1 L (6.0-8.3) gm/dl Albumin 3.0 L (3.4-5.0) gm/dl Globulin 2.1 L (2.5-4.0) gm/dl Diagnostic Findings MRI brain - chronic R 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
[2023-09-26] MEDS: LIDOCAINE 2% 2 ML VIAL/AMP(20MG/ML) INFIL ONE (17:05)
[2023-09-26] MEDS: PROPOFOL IV EMULSION 10 MG/ML 20 ML VIAL IV ONE (17:05)
--- NOTE | 2023-09-26 22:56 | Electrocardiogram Report ---
Test Reason : Blood Pressure : / mmHG Vent. Rate : 071 BPM Atrial Rate : 071 BPM P-R Int : 170 ms QRS Dur : 084 ms QT Int : 408 ms P-R-T Axes : 064 -15 003 degrees QTc Int : 443 ms Normal sinus rhythm Possible Left atrial enlargement Borderline ECG No previous ECGs available Confirmed by Delfin Barnes ([id number]) on 09/26/2023 10:56:18 PM Referred By: REFERRED SELF Confirmed By:Delfin Barnes
[2023-09-27 04:42] LABS: Hematocrit (blood only) 33.3 % (37.0-47.0); Hemoglobin 10.8 g/dl (12.0-16.0); Mean Corpuscular Hemoglobin 30.9 pg (25.0-34.0); Mean Corpuscular Hgb Conc 32.4 g/dL (32.0-36.0); Mean Corpuscular Volume 95.4 fL (80.0-100.0); Mean Platelet Volume 9.5 fL (9.4-12.4); Platelet Count 156 K/uL (130-400); RDW Coefficient of Variation 14.1 % (11.5-14.5); RDW Standard Deviation 49.4 fL (36.4-46.3); Red Blood Count 3.49 M/uL (4.20-5.40); White Blood Count 3.24 K/ul (4.8-10.8)
[2023-09-27 05:03] LABS: Albumin Globulin Ratio 1.5 (0.9-2); Albumin Level 3.1 gm/dl (3.4-5.0); BUN Creatinine Ratio 9.8 (10-20); Bilirubin,Total 0.2 mg/dl (0.2-1.0); Calcium 8.5 mg/dl (8.6-10.3); Chol HDL Ratio 3.7 (0-5); Creatinine Clr Calc Pharmacy 64.8 ml/min; Est GFR (African American) 68.3 ml/min; Est GFR (Non-African American) 58.9 ml/min; Globulin 2.1 gm/dl (2.5-4.0); Total Protein 5.2 gm/dl (6.0-8.3)
[2023-09-27 05:08] LABS: INR 0.9 (0.9-1.1); Prothrombin Time 10.4 Seconds (9.0-12.0)
[2023-09-27 05:21] LABS: Ferritin 20.6 ng/ml (8-388)
[2023-09-27] MEDS: PROSOURCE NO CARB 30 ML/PKT JT SCH (08:15)
[2023-09-27] MEDS: PEPTAMEN 1.5 CAL 1,000 ML BAG JT SCH (08:17)
--- NOTE | 2023-09-27 11:08 | Communication Note ---
Date of Service: September 27, 2023 I was asked to stop in to see the patient today. She tells me she was concerned about her lower abdominal pain that she has had for several months that comes on with moving her bowels and does get better afterwards but takes several hours to resolve. CT imaging on admission was unremarkable. we discussed we could evaluate with a colonoscopy but that this would likely need to be done next week or she could choose to have done at home with her regular gastroenterology group. She wishes to consider this.
--- NOTE | 2023-09-27 12:19 | Hospitalist Progress Note ---
Date of Service September 27, 2023 Assessment & Plan (1) Confusion: (2) Dehydration: (3) Abdominal fluid collection: (4) History of total colectomy: (5) Uses feeding tube: (6) Elevated LFTs: (7) Renal lesion: (8) Hypothyroidism: Plan Ms. Mosher is a 63-year-old female with PMH history of CVA, extensive history of diverticular disease s/p multiple bowel resections ultimately leading to total colectomy, GJ tube placement February 2023, history of recurrent small bowel obstructions, history of C. difficile infection, and other problems listed below who presents to the ED for evaluation of confusion and generalized weakness. Imaging revealed fluid collection around GJ tube. Discussion with IR was had on 09/24 and though there is a small fluid collection, it will likely not yield anything from IR aspiration. General surgery stated no surgical intervention. Plan for GI consult given concern for questionable leaking of stomach contents, thus with surrounding inflammation/irritation at site. Patient slowly increasing tube feeds at this time. Patient wished to speak with GI again--discussed concerns about abdominal pain. Notes that she experiences significant pain and aching after bowel movements. GI willing to scope patient but will be next week. #Abdominal pain with defecation CT abd unremarkable Wishes to pursue inpatient colonoscopy; discussed with GI, will be next week #Acute metabolic encephalopathy*resolved #Prior CVA reportedly 2018 #Acute on chronic headache #Stroke like symptoms, ?recrudescence Encephalopathy resolved; question of stroke like symptoms with facial droop, reportedly similar to prior stroke; CT head normal x 2, MRI head with area of intensity ?gliosis v PRES. Suspect likely recrudescence and headache exacerbated by dehydration/low BP Continue Ketorlac and IVF until PO Patient declined steroid use Flexeril with moderate relief Neurology to review for any new changes and imaging recommendations given gliosis reported -09/25: No further work up, follow up with primary Triptan contraindicated give history Follow infectious work up, so far negative to date. #Abnormal CT AB #GJT leak, bumper adjusted on 09/25 #Fluid collection near GJ Tube #Multiple recurrent SBO #Colectomy s/p GJ tube Patient presenting for evaluation of confusion and generalized weakness. Patient with history of extensive diverticular disease and recurrent SBO's s/p multiple bowel resections ultimately leading to total colectomy. Had GJ tube placed February 2023. In the ED, afebrile, no leukocytosis. CT ABD/pelvis shows wall thickening within the left anterior abdominal wall surrounding the gastrostomy tube with an adjacent indeterminate 6 cm anterior abdominal wall fluid collection. Follow infectious work up Continue Ligiasykwaku and bethanie neely as able Follow blood cultures General surgery contacted by ED -no surgical intervention Contacted IR -No IR aspiration at this time Consult GI for eval of GJ site to assess need for tube exhange/balloon inflation/bumper eval -Pending EGD today, will need transfer if PEG requires exchange #Tube Feeds Home tube feeding regimen-Peptamen 1.5 3 cartons to run over 7 hours and Prosource 30 mL bolus 4 times a day with 60 mL water flushes and 30 mL flush after Prosource. Dietitian consult for tube feed management. Will resume after GI eval/EGD #Transaminitis Patient reports a history of elevated LFTs, no records available to review at this time T. bili 0.3, AST 94, ALT 121, alk phos 159 CT ABD/pelvis shows Cholecystectomy with likely postsurgical biliary ductal dilation. Follow up RUQ and Trend LFTs Abnormal LFT workup ordered #Positive Lyme Screen Lyme screen positive however IgG and IgM negative. Anaplasma and Babesia smears negative for inclusion bodies, confirmatory testing pending. Follow western blot #Renal Lesion CT ABD/pelvis shows Indeterminate 10 mm right renal lesion could be correlated with a nonemergent follow-up ultrasound Renal ultrasound ordered: favors proteinaceous cyst #Hypothyroid TSH <0.010 with normal free T4 Continue home dose Synthroid, will need close outpatient follow-up #History of migraines On ubrogepant at home Ketorlac prn DVT PROPHYLAXIS SQ heparin Admission and Anticipated Discharge Date Admission Date: September 24, 2023 Subjective Evaluated patient at bedside Notes discomfort with tube feeds Endorses ongoing lower abdominal pain with defecation--GI touched based with patient and patient wishes to pursue inpatient scope No hematemesis, melena, afebrile Physical Exam Constitutional: WD/WN, vitals as above Respiratory: normal respiratory effort, lungs clear to auscultation Cardiovascular: RRR, no murmur, no edema Gastrointestinal (Abdomen): tube feeds running at 75 Results & Data Results & Data Vital Signs (Past 12 Hours) Vital Signs Temp Pulse Pulse Resp BP Pulse Ox O2 Del Method 09/27/23 11:32 37.0 C 68 18 125/71 92 Room Air 09/27/23 07:34 37.0 C 68 18 112/55 L 91 Room Air 09/27/23 05:54 69 09/27/23 03:33 36.9 C 77 20 111/63 92 Room Air Laboratory Results Short CBC 09/27/23 Range/Units 04:08 WBC 3.24 L (4.8-10.8) K/ul Hgb 10.8 L (12.0-16.0) g/dl Hct 33.3 L (37.0-47.0) % Plt Count 156 (130-400) K/uL BMP 09/27/23 04:08 Sodium 142 Potassium 4.0 Chloride 110 H Carbon Dioxide 27 BUN 10 Creatinine 1.02 Glucose 100 H Calcium 8.5 L Cardiac Enzymes 09/27/23 Range/Units 04:08 Total Creatine Kinase 38 (26-192) U/L Liver Function 09/27/23 Range/Units 04:08 Total Bilirubin 0.2 (0.2-1.0) mg/dl Direct Bilirubin 0.0 (0-0.2) mg/dl AST 48 H (13-39) U/L ALT 93 H (7-52) U/L Alkaline Phosphatase 196 H (34-104) U/L Albumin 3.1 L (3.4-5.0) gm/dl Medications Administered Home Medications Medication Instructions Recorded Confirmed Last Taken carisoprodol 350 mg tablet (Soma) 350 mg PO BID 09/24/23 09/24/23 Unknown cholecalciferol (vitamin D3) 10 0 mcg PO DAILY 09/24/23 09/24/23 Unknown mcg (400 unit) capsule (Vitamin D3) cyanocobalamin (vitamin B-12) 1,000 mcg IM UD 09/24/23 09/24/23 Unknown 1,000 mcg/mL injection solution duloxetine 60 mg capsule,delayed 60 mg PO DAILY 09/24/23 09/24/23 Unknown release (Cymbalta) erenumab-aooe 140 mg/mL 140 mg subcut UD 09/24/23 09/24/23 Unknown subcutaneous auto-injector (Aimovig Autoinjector) ezetimibe 10 mg tablet (Zetia) 10 mg PO DAILY 09/24/23 09/24/23 Unknown famotidine 40 mg tablet 40 mg PO DAILY 09/24/23 09/24/23 Unknown folic acid 1 mg tablet 1 mg PO DAILY 09/24/23 09/24/23 Unknown gabapentin 600 mg tablet 600 mg PO BID 09/24/23 09/24/23 Unknown levothyroxine 100 mcg tablet 100 mcg PO DAILY 09/24/23 09/24/23 Unknown lidocaine 5 % topical patch 1 patch topical DAILY 09/24/23 09/24/23 Unknown meclizine 25 mg tablet 25 mg PO BID PRN Vertigo 09/24/23 09/24/23 Unknown methenamine hippurate 1 gram tablet 1 g PO BID 09/24/23 09/24/23 Unknown omega 7-wym-jse-fish oil 1,000 mg 0 cap PO DAILY 09/24/23 09/24/23 Unknown (120 mg-180 mg) capsule (Fish Oil) promethazine 12.5 mg tablet 12.5 mg PO BID PRN nausea or 09/24/23 09/24/23 Unknown vomiting rosuvastatin 40 mg tablet 40 mg PO DAILY 09/24/23 09/24/23 Unknown spironolactone 50 mg tablet 50 mg PO DAILY 09/24/23 09/24/23 Unknown ubrogepant 50 mg tablet (Ubrelvy) 50 mg PO DAILY PRN Migraine 09/24/23 09/24/23 Unknown Headache zolpidem 10 mg tablet (Ambien) 10 mg PO HS 09/24/23 09/24/23 Unknown Active Medications Generic Name Dose Route Start Last Admin Trade Name Marita PRN Reason Stop Dose Admin Acetaminophen 650 mg 09/24/23 20:42 09/25/23 07:38 Acetaminophen 325 Mg Tab PO 10/24/23 20:41 650 mg Q4H PRN Administration pain/fever Ascorbic Acid 500 mg 09/25/23 21:00 09/27/23 08:15 Ascorbic Acid 500 Mg Tab PO 10/25/23 20:59 500 mg BID FELICITY Administration Carisoprodol 350 mg 09/24/23 21:00 09/27/23 08:38 Carisoprodol 350 Mg Tablet PO 10/24/23 20:59 350 mg BID FELICITY Administration Duloxetine HCl 60 mg 09/25/23 09:00 09/27/23 08:16 Duloxetine Hcl 60 Mg Cap PO 10/25/23 08:59 60 mg DAILY FELICITY Administration Ezetimibe 10 mg 09/25/23 09:00 09/27/23 08:16 Ezetimibe 10 Mg Tab PO 10/25/23 08:59 10 mg DAILY FELICITY Administration Enteral Nutritional Formula 0 ml 09/27/23 08:00 09/27/23 08:17 Peptamen 1.5 Homer 1,000 Ml Bag JT 10/27/23 07:59 1,000 ml Q24H FELICITY Administration Protocol Famotidine 40 mg 09/25/23 09:00 09/27/23 08:16 Famotidine 40 Mg Tablet PO 10/25/23 08:59 40 mg DAILY FELICITY Administration Folic Acid 1 mg 09/25/23 09:00 09/27/23 08:16 Folic Acid 1 Mg Tab PO 10/25/23 08:59 1 mg DAILY FELICITY Administration Gabapentin 600 mg 09/24/23 21:00 09/27/23 08:16 Gabapentin 600 Mg Tab PO 10/24/23 20:59 600 mg BID FELICITY Administration Heparin Sodium (Porcine) 5,000 units 09/24/23 22:00 09/27/23 05:30 Heparin Sod 5,000 Unit/0.5 Ml Vial SQ 10/24/23 21:59 5,000 units Q8 FELICITY Administration Piperacillin Sod/Tazobactam 100 mls @ 25 mls/hr 09/24/23 22:00 09/27/23 09:23 Sod 4.5 gm/ Dextrose IV 10/01/23 21:59 Infused Q8H FELICITY Infusion Protocol Lactated Ringer's 1,000 mls @ 125 mls/hr 09/25/23 12:15 09/27/23 05:23 Lr IV 10/25/23 12:14 125 mls/hr .Q8H FELICITY Administration Sodium Chloride 500 mls @ 15 mls/hr 09/26/23 11:00 09/27/23 09:41 Nss IV 10/26/23 10:59 Not Given .Q24H FELICITY Ketorolac Tromethamine 15 mg 09/25/23 12:20 09/26/23 19:21 Ketorolac Tromethamine 15 Mg/Ml Vial IV 09/30/23 12:19 15 mg Q6H PRN Administration Pain Levothyroxine Sodium 75 mcg 09/25/23 06:30 09/27/23 06:10 Levothyroxine Sodium 75 Mcg Tablet PO 10/25/23 06:29 75 mcg DAILYBB FELICITY Administration Methenamine Hippurate 1 gm 09/24/23 21:00 09/27/23 08:16 Methenamine Hippurate 1 Gm Tab PO 10/24/23 20:59 1 gm BID FELICITY Administration Nutritional Formula 30 ml 09/27/23 08:00 09/27/23 08:15 Prosource No Carb 30 Ml/Pkt JT 10/27/23 07:59 30 ml QD@08 FELICITY Administration Ondansetron HCl 4 mg 09/24/23 21:45 09/26/23 16:42 Ondansetron Inj 2 Mg/Ml 2 Ml Vial IV 10/24/23 21:44 4 mg Q6H PRN Administration Nausea And Vomiting Oxycodone HCl 5 mg 09/24/23 19:19 09/27/23 08:32 Oxycodone Hcl Ir 5 Mg Tab (Immediate Release) PO 10/08/23 19:18 5 mg Q6H PRN Administration Mod-Sev Pain (Scale 4-10) Pantoprazole Sodium 40 mg 09/25/23 21:00 09/27/23 08:15 Pantoprazole 40 Mg Tab PO 10/25/23 20:59 40 mg BID FELICITY Administration Promethazine HCl 12.5 mg 09/26/23 09:55 09/27/23 08:30 Promethazine Hcl 12.5 Mg/10 Ml Udp PO 10/26/23 09:54 12.5 mg Q6H PRN Administration Nausea And Vomiting Senna/Docusate Sodium 1 tab 09/25/23 06:15 09/27/23 08:16 Docusate Sodium/Senna 50/8.6mg Tab PO 10/25/23 06:14 1 tab QAM FELICITY Administration Sterile Water 100 ml 09/26/23 16:00 09/27/23 08:16 Tube Feeding Water Flush GT 10/26/23 15:59 100 ml QID@0800,1200,1600,2000 FELICITY Administration Vitamin D 25 mcg 09/25/23 09:00 09/27/23 08:15 Cholecalciferol 25 Mcg (1000 Units) Tab PO 10/25/23 08:59 25 mcg DAILY FELICITY Administration Zolpidem Tartrate 5 mg 09/25/23 12:21 09/27/23 00:12 Zolpidem Tartrate 5 Mg Tab PO 10/25/23 12:20 5 mg HS PRN Administration Sleep
[2023-09-28 06:44] LABS: Hematocrit (blood only) 32.1 % (37.0-47.0); Hemoglobin 10.4 g/dl (12.0-16.0); Mean Corpuscular Hemoglobin 30.8 pg (25.0-34.0); Mean Corpuscular Hgb Conc 32.4 g/dL (32.0-36.0); Mean Platelet Volume 9.5 fL (9.4-12.4); Platelet Count 176 K/uL (130-400); RDW Standard Deviation 48.7 fL (36.4-46.3); Red Blood Count 3.38 M/uL (4.20-5.40); White Blood Count 3.48 K/ul (4.8-10.8)
[2023-09-28 07:08] LABS: Calcium 8.4 mg/dl (8.6-10.3); Creatinine Clr Calc Pharmacy 71.9 ml/min; Est GFR (African American) 77.3 ml/min; Est GFR (Non-African American) 66.7 ml/min; Magnesium 1.7 mg/dl (1.7-2.4); Phosphorus 3.6 mg/dl (2.5-4.9); Potassium 4.2 mmol/L (3.5-5.1)
--- NOTE | 2023-09-28 14:14 | Hospitalist Progress Note ---
Date of Service September 28, 2023 Assessment & Plan (1) Confusion: (2) Dehydration: (3) Abdominal fluid collection: (4) History of total colectomy: (5) Uses feeding tube: (6) Elevated LFTs: (7) Renal lesion: (8) Hypothyroidism: Plan Ms. Mosher is a 63-year-old female with PMH history of CVA, extensive history of diverticular disease s/p multiple bowel resections ultimately leading to total colectomy, GJ tube placement February 2023, history of recurrent small bowel obstructions, history of C. difficile infection, and other problems listed below who presents to the ED for evaluation of confusion and generalized weakness. Imaging revealed fluid collection around GJ tube. Discussion with IR was had on 09/24 and though there is a small fluid collection, it will likely not yield anything from IR aspiration. General surgery stated no surgical intervention. Plan for GI consult given concern for questionable leaking of stomach contents, thus with surrounding inflammation/irritation at site. Patient slowly increasing tube feeds at this time. Patient wished to speak with GI again--discussed concerns about abdominal pain. Notes that she experiences significant pain and aching after bowel movements. GI willing to scope patient but will be next week after watching progress over weekend. Patient states she cannot go home 2/2 pain and will need continued discussion with GI to determine appropriateness of scope. #Abdominal pain with defecation CT abd unremarkable Wishes to pursue inpatient colonoscopy; discussed with GI, will be next week -will monitor over weekend and see if scope warranted. #Acute metabolic encephalopathy*resolved #Prior CVA reportedly 2018 #Acute on chronic headache #Stroke like symptoms, ?recrudescence Encephalopathy resolved; question of stroke like symptoms with facial droop, reportedly similar to prior stroke; CT head normal x 2, MRI head with area of intensity ?gliosis v PRES. Suspect likely recrudescence and headache exacerbated by dehydration/low BP Continue Ketorlac and IVF until PO Patient declined steroid use Flexeril with moderate relief Neurology to review for any new changes and imaging recommendations given gliosis reported -09/25: No further work up, follow up with primary Triptan contraindicated give history Follow infectious work up, so far negative to date. Seems to be at baseline. #Abnormal CT AB #GJT leak, bumper adjusted on 09/25 #Fluid collection near GJ Tube #Multiple recurrent SBO #Colectomy s/p GJ tube Patient presenting for evaluation of confusion and generalized weakness. Patient with history of extensive diverticular disease and recurrent SBO's s/p multiple bowel resections ultimately leading to total colectomy. Had GJ tube placed February 2023. In the ED, afebrile, no leukocytosis. CT ABD/pelvis shows wall thickening within the left anterior abdominal wall surrounding the gastrostomy tube with an adjacent indeterminate 6 cm anterior abdominal wall fluid collection. Follow infectious work up Will discontinue abx as infectious work up has been negative -drainage culture negative Follow blood cultures, NGTD General surgery contacted by ED -no surgical intervention Contacted IR -No IR aspiration at this time Consult GI for eval of GJ site to assess need for tube exhange/balloon inflation/bumper eval -EGD with ulceration around PEG insertion site, no exchange necessary, bumper tightened -Will monitor over weekend if pain improves and consider C-Scope #Tube Feeds Home tube feeding regimen-Peptamen 1.5 3 cartons to run over 7 hours and Prosource 30 mL bolus 4 times a day with 60 mL water flushes and 30 mL flush after Prosource. Dietitian consult for tube feed management. Increase to goal as tolerated #Transaminitis Patient reports a history of elevated LFTs, no records available to review at this time T. bili 0.3, AST 94, ALT 121, alk phos 159 CT ABD/pelvis shows Cholecystectomy with likely postsurgical biliary ductal dilation. Follow up RUQ and Trend LFTs Abnormal LFT workup ordered and pending, will need to follow up with PCP and primary GI provider in [place]. #Positive Lyme Screen Lyme screen positive however IgG and IgM negative. Anaplasma and Babesia smears negative for inclusion bodies, confirmatory testing pending. Follow western blot: negative. #Renal Lesion CT ABD/pelvis shows Indeterminate 10 mm right renal lesion could be correlated with a nonemergent follow-up ultrasound Renal ultrasound ordered: favors proteinaceous cyst #Hypothyroid TSH <0.010 with normal free T4 Continue home dose Synthroid, will need close outpatient follow-up #History of migraines On ubrogepant at home Ketorlac prn DVT PROPHYLAXIS SQ heparin PT OT no needs Admission and Anticipated Discharge Date Admission Date: September 24, 2023 Subjective NAEO Tube feeds at 100, up from 75 day prior States she still has lower abdominal pain which brings her to tears Denies fever chills or other acute concerns Physical Exam Constitutional: WD/WN, vitals as above Respiratory: normal respiratory effort, lungs clear to auscultation Cardiovascular: RRR, no murmur, no edema Results & Data Results & Data Vital Signs (Past 12 Hours) Vital Signs Temp Pulse Pulse Resp BP BP Pulse Ox 09/28/23 12:22 36.7 C 73 18 116/61 94 09/28/23 07:40 36.9 C 73 18 97/62 L 93 09/28/23 07:34 71 09/28/23 02:59 37.0 C 72 20 128/71 92 O2 Del Method 09/28/23 12:22 Room Air 09/28/23 07:40 Room Air 09/28/23 07:34 09/28/23 02:59 Room Air Laboratory Results Short CBC 09/28/23 Range/Units 06:02 WBC 3.48 L (4.8-10.8) K/ul Hgb 10.4 L (12.0-16.0) g/dl Hct 32.1 L (37.0-47.0) % Plt Count 176 (130-400) K/uL BMP 09/28/23 06:02 Sodium 143 Potassium 4.2 Chloride 111 H Carbon Dioxide 28 BUN 12 Creatinine 0.92 Glucose 87 Calcium 8.4 L Medications Administered Home Medications Medication Instructions Recorded Confirmed Last Taken carisoprodol 350 mg tablet (Soma) 350 mg PO BID 09/24/23 09/24/23 Unknown cholecalciferol (vitamin D3) 10 0 mcg PO DAILY 09/24/23 09/24/23 Unknown mcg (400 unit) capsule (Vitamin D3) cyanocobalamin (vitamin B-12) 1,000 mcg IM UD 09/24/23 09/24/23 Unknown 1,000 mcg/mL injection solution duloxetine 60 mg capsule,delayed 60 mg PO DAILY 09/24/23 09/24/23 Unknown release (Cymbalta) erenumab-aooe 140 mg/mL 140 mg subcut UD 09/24/23 09/24/23 Unknown subcutaneous auto-injector (Aimovig Autoinjector) ezetimibe 10 mg tablet (Zetia) 10 mg PO DAILY 09/24/23 09/24/23 Unknown famotidine 40 mg tablet 40 mg PO DAILY 09/24/23 09/24/23 Unknown folic acid 1 mg tablet 1 mg PO DAILY 09/24/23 09/24/23 Unknown gabapentin 600 mg tablet 600 mg PO BID 09/24/23 09/24/23 Unknown levothyroxine 100 mcg tablet 100 mcg PO DAILY 09/24/23 09/24/23 Unknown lidocaine 5 % topical patch 1 patch topical DAILY 09/24/23 09/24/23 Unknown meclizine 25 mg tablet 25 mg PO BID PRN Vertigo 09/24/23 09/24/23 Unknown methenamine hippurate 1 gram tablet 1 g PO BID 09/24/23 09/24/23 Unknown omega [id number]-fish oil 1,000 mg 0 cap PO DAILY 09/24/23 09/24/23 Unknown (120 mg-180 mg) capsule (Fish Oil) promethazine 12.5 mg tablet 12.5 mg PO BID PRN nausea or 09/24/23 09/24/23 Unknown vomiting rosuvastatin 40 mg tablet 40 mg PO DAILY 09/24/23 09/24/23 Unknown spironolactone 50 mg tablet 50 mg PO DAILY 09/24/23 09/24/23 Unknown ubrogepant 50 mg tablet (Ubrelvy) 50 mg PO DAILY PRN Migraine 09/24/23 09/24/23 Unknown Headache zolpidem 10 mg tablet (Ambien) 10 mg PO HS 09/24/23 09/24/23 Unknown Active Medications Generic Name Dose Route Start Last Admin Trade Name Alvarezq PRN Reason Stop Dose Admin Acetaminophen 650 mg 09/24/23 20:42 09/25/23 07:38 Acetaminophen 325 Mg Tab PO 10/24/23 20:41 650 mg Q4H PRN Administration pain/fever Ascorbic Acid 500 mg 09/25/23 21:00 09/28/23 08:16 Ascorbic Acid 500 Mg Tab PO 10/25/23 20:59 500 mg BID FELICITY Administration Carisoprodol 350 mg 09/24/23 21:00 09/28/23 09:13 Carisoprodol 350 Mg Tablet PO 10/24/23 20:59 350 mg BID FELICITY Administration Duloxetine HCl 60 mg 09/25/23 09:00 09/28/23 08:16 Duloxetine Hcl 60 Mg Cap PO 10/25/23 08:59 60 mg DAILY FELICITY Administration Ezetimibe 10 mg 09/25/23 09:00 09/28/23 08:16 Ezetimibe 10 Mg Tab PO 10/25/23 08:59 10 mg DAILY FELICITY Administration Enteral Nutritional Formula 0 ml 09/27/23 08:00 09/28/23 08:17 Peptamen 1.5 Homer 1,000 Ml Bag JT 10/27/23 07:59 1,000 ml Q24H FELICITY Administration Protocol Famotidine 40 mg 09/25/23 09:00 09/28/23 08:16 Famotidine 40 Mg Tablet PO 10/25/23 08:59 40 mg DAILY FELICITY Administration Folic Acid 1 mg 09/25/23 09:00 09/28/23 09:44 Folic Acid 1 Mg Tab PO 10/25/23 08:59 1 mg DAILY FELICITY Administration Gabapentin 600 mg 09/24/23 21:00 09/28/23 08:16 Gabapentin 600 Mg Tab PO 10/24/23 20:59 600 mg BID FELICITY Administration Heparin Sodium (Porcine) 5,000 units 09/24/23 22:00 09/28/23 13:33 Heparin Sod 5,000 Unit/0.5 Ml Vial SQ 10/24/23 21:59 5,000 units Q8 FELICITY Administration Piperacillin Sod/Tazobactam 100 mls @ 25 mls/hr 09/24/23 22:00 09/28/23 13:32 Sod 4.5 gm/ Dextrose IV 10/01/23 21:59 25 mls/hr Q8H FELICITY Administration Protocol Ketorolac Tromethamine 15 mg 09/25/23 12:20 09/28/23 09:13 Ketorolac Tromethamine 15 Mg/Ml Vial IV 09/30/23 12:19 15 mg Q6H PRN Administration Pain Levothyroxine Sodium 75 mcg 09/25/23 06:30 09/28/23 06:15 Levothyroxine Sodium 75 Mcg Tablet PO 10/25/23 06:29 75 mcg DAILYBB FELICITY Administration Methenamine Hippurate 1 gm 09/24/23 21:00 09/28/23 08:16 Methenamine Hippurate 1 Gm Tab PO 10/24/23 20:59 1 gm BID FELICITY Administration Miscellaneous 1 each 09/27/23 20:00 09/27/23 21:04 Tube Feeds - Stop Order N/A 10/27/23 19:59 1 each Q24H FELICITY Administration Nutritional Formula 30 ml 09/27/23 08:00 09/28/23 08:16 Prosource No Carb 30 Ml/Pkt JT 10/27/23 07:59 30 ml QD@08 FELICITY Administration Ondansetron HCl 4 mg 09/24/23 21:45 09/28/23 09:13 Ondansetron Inj 2 Mg/Ml 2 Ml Vial IV 10/24/23 21:44 4 mg Q6H PRN Administration Nausea And Vomiting Oxycodone HCl 5 mg 09/24/23 19:19 09/28/23 13:32 Oxycodone Hcl Ir 5 Mg Tab (Immediate Release) PO 10/08/23 19:18 5 mg Q6H PRN Administration Mod-Sev Pain (Scale 4-10) Pantoprazole Sodium 40 mg 09/25/23 21:00 09/28/23 08:16 Pantoprazole 40 Mg Tab PO 10/25/23 20:59 40 mg BID FELICITY Administration Promethazine HCl 12.5 mg 09/26/23 09:55 09/28/23 13:32 Promethazine Hcl 12.5 Mg/10 Ml Udp PO 10/26/23 09:54 12.5 mg Q6H PRN Administration Nausea And Vomiting Senna/Docusate Sodium 1 tab 09/25/23 06:15 09/28/23 08:16 Docusate Sodium/Senna 50/8.6mg Tab PO 10/25/23 06:14 1 tab QAM FELICITY Administration Sterile Water 100 ml 09/26/23 16:00 09/28/23 12:17 Tube Feeding Water Flush GT 10/26/23 15:59 100 ml QID@0800,1200,1600,2000 FELICITY Administration Vitamin D 25 mcg 09/25/23 09:00 09/28/23 08:16 Cholecalciferol 25 Mcg (1000 Units) Tab PO 10/25/23 08:59 25 mcg DAILY FELICITY Administration Zolpidem Tartrate 5 mg 09/25/23 12:21 09/27/23 21:11 Zolpidem Tartrate 5 Mg Tab PO 10/25/23 12:20 5 mg HS PRN Administration Sleep
[2023-09-28] MEDS: IRON SUCROSE 300 MG in SODIUM CHLORIDE 0.9% 250 ML IV SCH (15:30)
[2023-09-29] MEDS: DICYCLOMINE HCL 10 MG CAP PO PRN (00:06)
[2023-09-29] MEDS: HEPARIN 100 UNIT/ML 5ML FLUSH FLUSH PRN (11:24)
--- NOTE | 2023-09-29 13:04 | Discharge Summary ---
Discharge Summary Date of Service September 29, 2023 Notes For Next Care Provider Medication Changes From Visit Bentyl 10mg QID prn for abdominal cramping Iron supplement daily Held spironolactone 25mg daily secondary to dehydration/low blood pressures Admission HPI Per Admitting Provider 63-year-old female with PMH history of CVA, extensive history of diverticular disease s/p multiple bowel resections ultimately leading to total colectomy, GJ tube placement February 2023, history of recurrent small bowel obstructions, history of C. difficile infection, and other problems listed below who presents to the ED for evaluation of confusion and generalized weakness. History is obtained from the patient and who is the bedside. No outside records available for review. Patient and her are visiting family in the area. They primarily reside in [place]. Last evening, patient's states that patient was confused and hallucinating. Symptoms lasted for about 10 minutes and then resolved. Patient then went to bed. This morning, when patient woke up she was again confused and was generally weak, unable to sit up or get out of bed. Patient was then brought to the ED for further evaluation. Patient reports having some episodes of chills however did not take her temperature. Yesterday, patient was unable to get her usual amount of free wate r flushes through her feeding tube. Patient reports increased pain around her GJ tube insertion site as well with increased drainage. She has chronic diarrhea which is unchanged from baseline. No vomiting. She denies chest pain and shortness of breath. No lightheadedness, dizziness, diaphoresis, syncopal events. Denies urinary symptoms. In the ED, patient is afebrile, no leukocytosis noted. Mildly elevated LFTs, AST 94, ALT 121, alk phos 159. Lyme screen positive however IgG and IgM negative. CT ABD/pelvis shows There is wall thickening within the left anterior abdominal wall surrounding the gastrostomy tube with an adjacent indeterminate 6 cm anterior abdominal wall fluid collection. Patient was given IV Tylenol, IV daptomycin, IV famotidine, IV ketorolac, IV Zofran, IV Zosyn, IVF. Admission Exam Per Admitting Provider Constitutional: WD/WN, vitals as above no acute distress Eyes: PERRL, conjunctivae normal, anicteric sclerae ENMT: Ears: no external ear abnormality Nose: no external nose abnormality Mouth: + dry oral mucous membranes Respiratory: normal respiratory effort, lungs clear to auscultation Cardiovascular: Rate/Rhythm: regular rate and regular rhythm Vessels: normal peripheral pulses Extremities: no edema Gastrointestinal (Abdomen): Inspection/Auscultation: normal bowel sounds Percussion/Palpation: + abdomen tender (Mildly tender around feeding tube insertion site) and abdomen soft Musculoskeletal: no cyanosis or clubbing, extremities motor strength 5/5 Skin: no rashes, warm and dry Neurologic: PERRL, EOMI, accommodation nl, no face palsy, no dysarthria Psychiatric: A+Ox3, euthymic affect Principal Dx & Hospital Course #1 = Principal Diagnosis (1) Confusion: (2) Dehydration: (3) Abdominal fluid collection: (4) History of total colectomy: (5) Uses feeding tube: (6) Elevated LFTs: (7) Renal lesion: (8) Hypothyroidism: Plan Ms. Mosher is a 63-year-old female with PMH history of CVA, extensive history of diverticular disease s/p multiple bowel resections ultimately leading to total colectomy, GJ tube placement February 2023, history of recurrent small bowel obstructions, history of C. difficile infection, and other problems listed below who presents to the ED for evaluation of confusion and generalized weakness. Imaging revealed fluid collection around GJ tube. Discussion with IR was had on 09/24 and though there is a small fluid collection, it will likely not yield anything from IR aspiration. General surgery stated no surgical intervention. Plan for GI consult given concern for questionable leaking of stomach contents, thus with surrounding inflammation/irritation at site. Patient slowly increasing tube feeds at this time. Patient wished to speak with GI again--discussed concerns about abdominal pain. Notes that she experiences significant pain and aching after bowel movements. GI willing to scope patient but will be next week. Over the weekend, patient determined that her symptoms have improved with bumper adjustment and that she is ready to go home. Course complicated by the fact patient does not have supplies at lodging for feeding and will not be leaving the [place] area until 09/30. Multiple avenues were pursued to find supplies to facilitate discharge--Nutrition services were able to help in facilitating the supplies nee ded for patient to perform gravity feeds at home. These supplies were given to patient and who verbalized understanding of process and instructions. On day of discharge, patient was ambulating in room without assistive devices, denied any pain or any new symptoms. #Abdominal pain with defecation CT abd unremarkable Wishes to pursue inpatient colonoscopy; discussed with GI, will be next week Patient will follow with home frontload driver for continuity of care #Acute metabolic encephalopathy*resolved #Prior CVA reportedly 2018 #Acute on chronic headache #Stroke like symptoms, ?recrudescence Encephalopathy resolved; question of stroke like symptoms with facial droop, reportedly similar to prior stroke; CT head normal x 2, MRI head with area of intensity ?gliosis v PRES. Suspect likely recrudescence and headache exacerbated by dehydration/low BP Continue Ketorlac and IVF until PO Patient declined steroid use Flexeril with moderate relief Neurology to review for any new changes and imaging recommendations given gliosis reported -09/25: No further work up, follow up with primary Triptan contraindicated give history Follow infectious work up, so far negative to date. Patient will follow with home neurologist for continuity of care #Abnormal CT AB #GJT leak, bumper adjusted on 09/25 #Fluid collection near GJ Tube #Multiple recurrent SBO #Colectomy s/p GJ tube Patient presenting for evaluation of confusion and generalized weakness. Patient with history of extensive diverticular disease and recurrent SBO's s/p multiple bowel resections ultimately leading to total colectomy. Had GJ tube placed February 2023. In the ED, afebrile, no leukocytosis. CT ABD/pelvis shows wall thickening within the left anterior abdominal wall surrounding the gastrostomy tube with an adjacent indeterminate 6 cm anterior abdominal wall fluid collection. Follow infectious work up Discontinued abx as cultures negative General surgery contacted by ED -no surgical intervention Contacted IR -No IR aspiration at this time Consult GI for eval of GJ site to assess need for tube exhange/balloon inflation/bumper eval -bumper adjusted on 09/25. #Tube Feeds Home tube feeding regimen-Peptamen 1.5 3 cartons to run over 7 hours and P rosource 30 mL bolus 4 times a day with 60 mL water flushes and 30 mL flush after Prosource. Resume home feeds. #Transaminitis Patient reports a history of elevated LFTs, no records available to review at this time T. bili 0.3, AST 94, ALT 121, alk phos 159 CT ABD/pelvis shows Cholecystectomy with likely postsurgical biliary ductal dilation. Follow up RUQ and Trend LFTs Abnormal LFT workup ordered Patient follow GI who is aware of abnormality, will call as results return if abnormal. #Positive Lyme Screen Lyme screen positive however IgG and IgM negative. Anaplasma and Babesia smears negative for inclusion bodies, confirmatory testing pending. Follow western blot: negative #Renal Lesion CT ABD/pelvis shows Indeterminate 10 mm right renal lesion could be correlated with a nonemergent follow-up ultrasound Renal ultrasound ordered: favors proteinaceous cyst #Hypothyroid TSH <0.010 with normal free T4 Continue home dose Synthroid, will need close outpatient follow-up #History of migraines On ubrogepant at home Discharge Exam Constitutional WD/WN, vitals as above Respiratory normal respiratory effort, lungs clear to auscultation Cardiovascular RRR, no murmur, no edema Updated Medication List Medication Instructions Recorded Confirmed Type carisoprodol 350 mg tablet (Soma) 350 mg PO BID 09/24/23 09/24/23 History cholecalciferol (vitamin D3) 10 0 mcg PO DAILY 09/24/23 09/24/23 History mcg (400 unit) capsule (Vitamin D3) cyanocobalamin (vitamin B-12) 1,000 mcg IM UD 09/24/23 09/24/23 History 1,000 mcg/mL injection solution duloxetine 60 mg capsule,delayed 60 mg PO DAILY 09/24/23 09/24/23 History release (Cymbalta) erenumab-aooe 140 mg/mL 140 mg subcut UD 09/24/23 09/24/23 History subcutaneous auto-injector (Aimovig Autoinjector) ezetimibe 10 mg tablet (Zetia) 10 mg PO DAILY 09/24/23 09/24/23 History famotidine 40 mg tablet 40 mg PO DAILY 09/24/23 09/24/23 History folic acid 1 mg tablet 1 mg PO DAILY 09/24/23 09/24/23 History gabapentin 600 mg tablet 600 mg PO BID 09/24/23 09/24/23 History levothyroxine 100 mcg tablet 100 mcg PO DAILY 09/24/23 09/24/23 History lidocaine 5 % topical patch 1 patch topical DAILY 09/24/23 09/24/23 History meclizine 25 mg tablet 25 mg PO BID PRN Vertigo 09/24/23 09/24/23 History methenamine hippurate 1 gram tablet 1 g PO BID 09/24/23 09/24/23 History omega 3-puv-mga-fish oil 1,000 mg 0 cap PO DAILY 09/24/23 09/24/23 History (120 mg-180 mg) capsule (Fish Oil) promethazine 12.5 mg tablet 12.5 mg PO BID PRN nausea or 09/24/23 09/24/23 History vomiting rosuvastatin 40 mg tablet 40 mg PO DAILY 09/24/23 09/24/23 History spironolactone 50 mg tablet 50 mg PO DAILY 09/24/23 09/24/23 History ubrogepant 50 mg tablet (Ubrelvy) 50 mg PO DAILY PRN Migraine 09/24/23 09/24/23 History Headache zolpidem 10 mg tablet (Ambien) 10 mg PO HS 09/24/23 09/24/23 History dicyclomine 10 mg capsule 10 mg PO QID PRN abdominal pain 09/28/23 Rx #120 caps ferrous sulfate 325 mg (65 mg 325 mg PO DAILY #30 tabs 09/29/23 Rx iron) tablet (Feosol) Hospital Stay Data Consultations 09/24/23 17:11 ED Decision to Admit Stat 09/24/23 20:42 Consult General Surgery Routine 09/25/23 11:51 Consult Gastroenterology Routine 09/26/23 11:33 Consult Neurology Routine Procedures Performed Operation Date: 09/26/23 16:30 Actual Procedures p Esophagogastroduodenoscopy - Michael Zuniga Case, DO Diagnostic Imagining Performed 09/24/23 12:39 CT abd pelvis IV con only Stat CT head/brain wo con Stat 09/24/23 20:41 US RUQ [US liver] Routine 09/25/23 16:09 CT Brain [CT head/brain wo con] Urgent 09/26/23 08:19 MRI Brain [MR brain wo con] Urgent Pending Results Patient Have Any Pending Studies at Discharge: No Discharge Instructions Given to Patient (Per Discharging Provider) You were admitted for abdominal pain and found to have a PEG tube leak with area of ulceration. The bumper was adjusted. It is recommended that: -Change dressing on top of bumper daily & start using PEG today. -Do not place anything under external bumper. -Continue present medications. It is strongly recommended you follow up with your established Communications Designer. You were evaluated by neurology. You do not have signs of stroke. Please follow up with your neurologist for headaches/migraine management. You were noted to have abdominal cramping, you will be sent home with Bentyl 10mg to take as needed for abdominal pain. You received an iron transfusion. Iron supplement sent to your pharmacy. You blood pressure remained relatively low. Your spironolactone was held. Please discuss with primary timing for resumption Total Time Total Time Spent Total Time Spent (In Minutes): 65
[2023-09-29 14:07] LABS: Ehrlichia chaff DNA Bld Negative (Negative)
[2023-09-29 23:37] LABS: Babesia microti DNA Not Detected (Not Detected); Q Fever IgG, Phase I NEGATIVE; Q Fever Phase I IgM Antibody NEGATIVE; Q Fever Phase II IgG Antibody NEGATIVE; Q Fever Phase II IgM Antibody NEGATIVE; R. typhi IgG Ab NOT DETECTED; R. typhi IgM Ab NOT DETECTED; RMSF IgG Ab NOT DETECTED; RMSF IgM Ab NOT DETECTED
[2023-09-30 14:32] LABS: EBV Nuclear Ag Antibody <18.00 U/mL
[2023-10-01 08:14] LABS: Alpha 1 Antitrypsin 148 mg/dL (83-199); Anti Mitochondrial Antibody NEGATIVE (NEGATIVE); Anti Nuclear Antibody Screen NEGATIVE (NEGATIVE); CMV IgM Antibody <30.00 AU/mL; Ceruloplasmin 35 mg/dL (18-53); Gamma Glutamyl Transpeptidase 211 U/L (3-65); HBSAG NON-REACTIVE (NON-REACTIVE); Hepatitis A Antibody IgM NON-REACTIVE (NON-REACTIVE); Hepatitis B Core Antibody IgM NON-REACTIVE (NON-REACTIVE); Smooth Muscle Antibody NEGATIVE (NEGATIVE)
== END 2023-09-29 14:21 | disposition home or self-care (01) | DRG 393 ==
LOC: ED 10:32 → 2W 17:59 → SUATTDRO 17:59 → 2W 20:24